=== PATIENT | female | born 1960 | race African-American/Black ===

== ENCOUNTER 2017-11-04 08:35 | Observation (INO) ==
[2017-11-04] MEDS ORDERED: ALBUTEROL/IPRATROPIUM 3 ML NEB RESP TX STA ×2 (09:00→09:47)
[2017-11-04] MEDS ORDERED: methylPREDNISolone SOD SUC 125 MG/2 ML VIAL IV STA (09:00)
[2017-11-04 09:22] LABS: Basophils # 0.1 10*3/uL (0.0-0.2); Basophils % 0.7 % (0.0-0.8); Eosinophils # 1.1 10*3/uL (0.0-0.87); Eosinophils % 12.2 % (0.00-10.9); Hematocrit 44.7 VOL% (35.7-47.0); Hemoglobin 14.8 GM/DL (12.0-16.0); Immature Granulocytes % 0.3 %; Immature Granulocytes Absolute 0.03 #; Lymphocytes # 2.6 10*3/uL (1.4-4.0); Lymphocytes % 29.9 % (21.3-54.2); Mean Corpuscular HGB Conc 33.1 GM/DL (32-36); Mean Corpuscular Hemoglobin 33 PG (27-34); Mean Platelet Volume 9.5 FL (9.6-12.0); Monocytes # 0.7 10*3/uL (0.11-0.8); Neutrophils # 4.2 10*3/uL (1.4-7.4); Neutrophils % 48.9 % (38.7-73.9); Platelet Count 332 T/CUMM (130-400); Red Blood Count 4.56 MC/CUMM (3.8-5.5); Red Cell Distribution Width 12.4 % (9.3-17.3); White Blood Count 8.6 T/CUMM (4-12)
[2017-11-04 09:50] LABS: Eosinophils 15 % (0-10); Lymphocytes 22 % (20-55); Segmented Neutrophils 56 % (50-85); Total Cells Counted 100
[2017-11-04 09:52] LABS: Anisocytosis 1+; Macrocytosis 1+
[2017-11-04 09:53] LABS: Tear Drop Cells Few
[2017-11-04 09:54] LABS: Albumin 3.6 G/DL (3.4-5.0); Bilirubin,Total 0.6 MG/DL (0.2-1.0); Calcium 9.1 MG/DL (8.5-10.1); Osmolality,Calculated 278.4 MOS/KG (273-304); Potassium 4.5 MMOL/L (3.5-5.1); Total Protein 7.1 G/DL (6.4-8.3)
[2017-11-04 09:57] LABS: Hypochromasia Slight
[2017-11-04] MEDS ORDERED: BISACODYL 5 MG TABLET PO PRN (13:47)
[2017-11-04] MEDS ORDERED: ONDANSETRON 4 MG/2 ML VIAL IV PRN (13:47)
[2017-11-04] MEDS ORDERED: ACETAMINOPHEN 325 MG TABLET PO PRN (13:47)
[2017-11-04] MEDS ORDERED: ALBUTEROL 2.5 MG/3 ML NEB RESP TX PRN (15:00)
[2017-11-04] MEDS ORDERED: methylPREDNISolone SOD SUC 40 MG/1 ML VIAL ONE ×3 (15:23)
[2017-11-04] MEDS: methylPREDNISolone SOD SUC 125 MG/2 ML VIAL IV SCH (15:53)
[2017-11-04] MEDS: ENOXAPARIN 40 MG/0.4 ML SYRINGE SUBCUT SCH (15:53)
[2017-11-04] MEDS ORDERED: NICOTINE 14 MG/24 HR PATCH TRANSDERM PRN (16:26)
[2017-11-04] MEDS: ALBUTEROL/IPRATROPIUM 3 ML NEB RESP TX SCH (18:49)
[2017-11-04] MEDS ORDERED: methylPREDNISolone SOD SUC 125 MG/2 ML VIAL IV SCH (21:30)
[2017-11-05] MEDS: methylPREDNISolone SOD SUC 125 MG/2 ML VIAL IV SCH ×2 (00:04→08:41)
[2017-11-05] MEDS: ENOXAPARIN 40 MG/0.4 ML SYRINGE SUBCUT SCH (00:06)
[2017-11-05] MEDS: ALBUTEROL/IPRATROPIUM 3 ML NEB RESP TX SCH ×2 (07:02→10:40)
[2017-11-05] MEDS ORDERED: PANTOPRAZOLE 40 MG TABLET PO SCH (09:00)
[2017-11-05 11:45] VITALS: BP 110/67
== END 2017-11-05 13:46 | disposition home or self-care (01) ==
LOC: N.EDINP 08:35 → N.ED 08:35 → N.2W 12:17 → N.2E 16:02
PROVIDERS: ADMIT Internal Medicine; ATTEND Internal Medicine

== ENCOUNTER 2017-11-11 10:24 | Inpatient (IN) ==
[2017-11-11] MEDS ORDERED: MAGNESIUM SULF RIDER 2 GM in PREMIX 1 EACH IV STA (10:45)
[2017-11-11] MEDS ORDERED: methylPREDNISolone SOD SUC 125 MG/2 ML VIAL IV STA (10:45)
[2017-11-11] MEDS ORDERED: ALBUTEROL 2.5 MG/3 ML NEB RESP TX SCH (11:00)
[2017-11-11 11:01] LABS: Basophils # 0.1 10*3/uL (0.0-0.2); Basophils % 0.5 % (0.0-0.8); Eosinophils # 1.3 10*3/uL (0.0-0.87); Eosinophils % 9.9 % (0.00-10.9); Hematocrit 44.3 VOL% (35.7-47.0); Hemoglobin 14.5 GM/DL (12.0-16.0); Immature Granulocytes % 0.7 %; Immature Granulocytes Absolute 0.09 #; Lymphocytes # 2.7 10*3/uL (1.4-4.0); Lymphocytes % 20.8 % (21.3-54.2); Mean Corpuscular HGB Conc 32.7 GM/DL (32-36); Mean Corpuscular Hemoglobin 32 PG (27-34); Mean Corpuscular Volume 98.2 FL (87-102); Mean Platelet Volume 9.5 FL (9.6-12.0); Monocytes # 0.8 10*3/uL (0.11-0.8); Monocytes % 6.3 % (1.7-12.7); Neutrophils # 8.2 10*3/uL (1.4-7.4); Neutrophils % 61.8 % (38.7-73.9); Platelet Count 288 T/CUMM (130-400); Red Blood Count 4.51 MC/CUMM (3.8-5.5); Red Cell Distribution Width 12.4 % (9.3-17.3); White Blood Count 13.2 T/CUMM (4-12)
[2017-11-11 11:20] LABS: INR 0.9; PT Patient Result 9.4 SECS; Partial Thromboplastin Time 25.7 SECS (0-40)
[2017-11-11 11:29] LABS: Albumin 3.3 G/DL (3.4-5.0); Bilirubin,Total 0.4 MG/DL (0.2-1.0); Calcium 8.5 MG/DL (8.5-10.1); Osmolality,Calculated 285.1 MOS/KG (273-304); Potassium 4.1 MMOL/L (3.5-5.1); Total Protein 6.7 G/DL (6.4-8.3)
[2017-11-11 13:19] LABS: ABG Base Excess 2.3 MMOL/L (-2.5-2.5); ABG HCO3 26.4 MMOL/L (20-26); ABG Oxygen Saturation 94.7 % (95-100); ABG PCO2 47.5 MM HG (35-48); ABG PH 7.382 (7.35-7.45); ABG PO2 75.6 MM HG (80-95); ABG TCO2 24.5 MMOL/L (23-27)
[2017-11-11] MEDS ORDERED: PROMETHAZINE 25 MG/1 ML VIAL IM PRN (13:44)
[2017-11-11] MEDS ORDERED: ONDANSETRON 4 MG/2 ML VIAL IV PRN (13:44)
[2017-11-11] MEDS ORDERED: ACETAMINOPHEN 325 MG TABLET PO PRN (13:44)
[2017-11-11] MEDS ORDERED: ALBUTEROL 2.5 MG/3 ML NEB RESP TX PRN (13:46)
[2017-11-11] MEDS ORDERED: CLORAZEPATE 7.5 MG TABLET PO STA (13:56)
[2017-11-11 15:09] LABS: Thyroid Stimulating Hormone 0.771 uIU/ml (0.358-3.74)
[2017-11-11] MEDS: NICOTINE 21 MG/24 HR PATCH TRANSDERM SCH (16:24)
[2017-11-11] MEDS: LEVOFLOXACIN INJ 500 MG in PREMIX 1 EACH IV SCH (16:24)
[2017-11-11] MEDS: PANTOPRAZOLE 40 MG TABLET PO SCH (16:24)
[2017-11-11] MEDS: MONTELUKAST 10 MG TABLET PO SCH (16:24)
[2017-11-11] MEDS: ALBUTEROL/IPRATROPIUM 3 ML NEB RESP TX SCH (19:13)
[2017-11-11] MEDS: BUDESONIDE 0.25 MG/2 ML NEB RESP TX SCH (19:14)
[2017-11-11] MEDS: ALBUTEROL 2 MG TABLET PO SCH (20:33)
[2017-11-11] MEDS: methylPREDNISolone SOD SUC 40 MG/1 ML VIAL IV SCH (20:34)
[2017-11-11] MEDS: ENOXAPARIN 40 MG/0.4 ML SYRINGE SUBCUT SCH (20:34)
[2017-11-11] MEDS: buPROPion SR 150 MG TABLET PO SCH (20:36)
[2017-11-11] MEDS ORDERED: ALUM/MAG/SIMETH/LIDO VISC 1:1 30 ML BOTTLE PO ONE (23:45)
[2017-11-11] MEDS ORDERED: MORPHINE 4 MG/1 ML VIAL IV ONE (23:46)
[2017-11-12] MEDS: ALBUTEROL/IPRATROPIUM 3 ML NEB RESP TX SCH ×4 (00:31→19:07)
[2017-11-12 02:54] LABS: Basophils % 0.2 % (0.0-0.8); Eosinophils % 0.1 % (0.00-10.9); Hematocrit 40.3 VOL% (35.7-47.0); Hemoglobin 12.7 GM/DL (12.0-16.0); Immature Granulocytes % 2.4 %; Immature Granulocytes Absolute 0.45 #; Lymphocytes # 1.5 10*3/uL (1.4-4.0); Lymphocytes % 7.6 % (21.3-54.2); Mean Corpuscular HGB Conc 31.5 GM/DL (32-36); Mean Corpuscular Hemoglobin 32 PG (27-34); Mean Corpuscular Volume 100.5 FL (87-102); Mean Platelet Volume 10.6 FL (9.6-12.0); Monocytes # 0.3 10*3/uL (0.11-0.8); Monocytes % 1.5 % (1.7-12.7); Neutrophils # 16.8 10*3/uL (1.4-7.4); Neutrophils % 88.2 % (38.7-73.9); Platelet Count 286 T/CUMM (130-400); Red Blood Count 4.01 MC/CUMM (3.8-5.5); Red Cell Distribution Width 12.4 % (9.3-17.3); White Blood Count 19.1 T/CUMM (4-12)
[2017-11-12 03:32] LABS: Albumin 3.1 G/DL (3.4-5.0); Bilirubin,Total 0.6 MG/DL (0.2-1.0); Calcium 8.4 MG/DL (8.5-10.1); Osmolality,Calculated 280.7 MOS/KG (273-304); Risk Ratio 3.74; Total Protein 6.7 G/DL (6.4-8.3); VLDL CHOLESTEROL 25.6 MG/DL
[2017-11-12] MEDS: methylPREDNISolone SOD SUC 40 MG/1 ML VIAL IV SCH ×3 (04:14→21:08)
[2017-11-12] MEDS: BUDESONIDE 0.25 MG/2 ML NEB RESP TX SCH ×2 (07:08→19:07)
[2017-11-12] MEDS: SODIUM CHLORIDE 0.9% 1,000 ML IV SCH ×2 (07:37→21:08)
[2017-11-12 08:14] LABS: Folate 6.6 NG/ML (5.4-24.0)
[2017-11-12] MEDS: NICOTINE 21 MG/24 HR PATCH TRANSDERM SCH (08:49)
[2017-11-12] MEDS: ALBUTEROL 2 MG TABLET PO SCH ×2 (08:49→21:07)
[2017-11-12] MEDS: PANTOPRAZOLE 40 MG TABLET PO SCH (08:49)
[2017-11-12] MEDS: buPROPion SR 150 MG TABLET PO SCH ×2 (08:50→21:06)
[2017-11-12] MEDS: MONTELUKAST 10 MG TABLET PO SCH ×2 (08:50→21:07)
[2017-11-12] MEDS: FOLIC ACID 1 MG TABLET PO SCH ×2 (14:09→21:07)
[2017-11-12] MEDS: CYANOCOBALAMIN 1000 MCG/1 ML VIAL IM SCH (14:09)
[2017-11-12] MEDS: LEVOFLOXACIN INJ 500 MG in PREMIX 1 EACH IV SCH (14:10)
[2017-11-12] MEDS: ROSUVASTATIN 10 MG TABLET PO SCH (21:07)
[2017-11-12] MEDS: ENOXAPARIN 40 MG/0.4 ML SYRINGE SUBCUT SCH (21:07)
[2017-11-13] MEDS: ALBUTEROL/IPRATROPIUM 3 ML NEB RESP TX SCH ×4 (00:23→19:50)
[2017-11-13] MEDS ORDERED: LACTULOSE 20 GM/30 ML UDCUP PO ONE (00:38)
[2017-11-13] MEDS: SODIUM CHLORIDE 0.9% 1,000 ML IV SCH ×3 (04:20→19:03)
[2017-11-13] MEDS: methylPREDNISolone SOD SUC 40 MG/1 ML VIAL IV SCH ×2 (04:20→12:40)
[2017-11-13 06:50] LABS: Basophils % 0.2 % (0.0-0.8); Hemoglobin 11.1 GM/DL (12.0-16.0); Immature Granulocytes % 5.6 %; Immature Granulocytes Absolute 1.37 #; Lymphocytes # 1.5 10*3/uL (1.4-4.0); Lymphocytes % 5.9 % (21.3-54.2); Mean Corpuscular HGB Conc 31.7 GM/DL (32-36); Mean Corpuscular Hemoglobin 32 PG (27-34); Mean Corpuscular Volume 101.4 FL (87-102); Mean Platelet Volume 10.1 FL (9.6-12.0); Monocytes # 1.1 10*3/uL (0.11-0.8); Monocytes % 4.6 % (1.7-12.7); Neutrophils # 20.6 10*3/uL (1.4-7.4); Neutrophils % 83.7 % (38.7-73.9); Platelet Count 238 T/CUMM (130-400); Red Blood Count 3.45 MC/CUMM (3.8-5.5); Red Cell Distribution Width 12.8 % (9.3-17.3); White Blood Count 24.6 T/CUMM (4-12)
[2017-11-13 07:12] LABS: Hypochromasia 1+; Lymphocytes 3 % (20-55); Platelet Estimate Adequate; Segmented Neutrophils 93 % (50-85); Total Cells Counted 100
[2017-11-13 07:24] LABS: Alanine Aminotransferase 30 U/L (13-56); Albumin 2.8 G/DL (3.4-5.0); Alkaline Phosphatase 54 U/L (45-117); Aspartate Amino Transferase 20 U/L (0-37); Bilirubin,Total < 0.39 MG/DL (0.2-1.0); Blood Urea Nitrogen 18 MG/DL (7-18); Calcium 8.3 MG/DL (8.5-10.1); Glucose 227 MG/DL (74-106); Osmolality,Calculated 289.3 MOS/KG (273-304); Potassium 5.2 MMOL/L (3.5-5.1); Sodium 141 MMOL/L (136-145); Total Protein 5.6 G/DL (6.4-8.3)
[2017-11-13] MEDS ORDERED: SODIUM POLYSTYRENE SULFATE 15 GM/60 ML BOTTLE PO STA (07:27)
[2017-11-13] MEDS: BUDESONIDE 0.25 MG/2 ML NEB RESP TX SCH ×2 (07:35→19:50)
[2017-11-13] MEDS: PANTOPRAZOLE 40 MG TABLET PO SCH (09:36)
[2017-11-13] MEDS: FOLIC ACID 1 MG TABLET PO SCH ×2 (09:36→21:41)
[2017-11-13] MEDS: MONTELUKAST 10 MG TABLET PO SCH ×2 (09:36→21:41)
[2017-11-13] MEDS: ALBUTEROL 2 MG TABLET PO SCH ×2 (09:36→21:41)
[2017-11-13] MEDS: NICOTINE 21 MG/24 HR PATCH TRANSDERM SCH (09:37)
[2017-11-13] MEDS: CYANOCOBALAMIN 1000 MCG/1 ML VIAL IM SCH (09:37)
[2017-11-13] MEDS: buPROPion SR 150 MG TABLET PO SCH ×2 (09:52→21:41)
[2017-11-13] MEDS ORDERED: ALBUTEROL/IPRATROPIUM 3 ML NEB RESP TX PRN (10:33)
[2017-11-13] MEDS: DORNASE ALFA 2.5 MG/2.5 ML VIAL RESP TX SCH ×2 (10:39→19:50)
[2017-11-13] MEDS: LEVOFLOXACIN INJ 500 MG in PREMIX 1 EACH IV SCH (14:09)
[2017-11-13] MEDS: BENZONATATE 100 MG CAPSULE PO SCH ×2 (14:10→21:41)
[2017-11-13] MEDS: ROSUVASTATIN 10 MG TABLET PO SCH (21:41)
[2017-11-13] MEDS: ENOXAPARIN 40 MG/0.4 ML SYRINGE SUBCUT SCH (21:41)
[2017-11-14] MEDS: methylPREDNISolone SOD SUC 40 MG/1 ML VIAL IV SCH ×2 (00:19→12:23)
[2017-11-14] MEDS: ALBUTEROL/IPRATROPIUM 3 ML NEB RESP TX SCH ×2 (00:26→07:28)
[2017-11-14] MEDS: SODIUM CHLORIDE 0.9% 1,000 ML IV SCH (04:01)
[2017-11-14 05:40] LABS: Basophils # 0.1 10*3/uL (0.0-0.2); Basophils % 0.2 % (0.0-0.8); Hematocrit 36.5 VOL% (35.7-47.0); Hemoglobin 11.6 GM/DL (12.0-16.0); Immature Granulocytes % 6.8 %; Immature Granulocytes Absolute 1.89 #; Lymphocytes # 1.9 10*3/uL (1.4-4.0); Lymphocytes % 6.8 % (21.3-54.2); Mean Corpuscular HGB Conc 31.8 GM/DL (32-36); Mean Corpuscular Hemoglobin 32 PG (27-34); Mean Platelet Volume 9.9 FL (9.6-12.0); Monocytes # 1.2 10*3/uL (0.11-0.8); Monocytes % 4.3 % (1.7-12.7); Neutrophils # 22.7 10*3/uL (1.4-7.4); Neutrophils % 81.9 % (38.7-73.9); Platelet Count 242 T/CUMM (130-400); Red Blood Count 3.58 MC/CUMM (3.8-5.5); White Blood Count 27.7 T/CUMM (4-12)
[2017-11-14 06:13] LABS: Band Neutrophils 2 % (0-10); Hypochromasia 1+; Lymphocytes 3 % (20-55); Macrocytosis Slight; Myelocytes 1 %; Segmented Neutrophils 89 % (50-85); Total Cells Counted 100
[2017-11-14 06:14] LABS: Albumin 2.9 G/DL (3.4-5.0); Bilirubin,Total 0.9 MG/DL (0.2-1.0); Calcium 8.1 MG/DL (8.5-10.1); Osmolality,Calculated 287.3 MOS/KG (273-304); Platelet Estimate Normal; Potassium 4.5 MMOL/L (3.5-5.1); Total Protein 6.2 G/DL (6.4-8.3)
[2017-11-14] MEDS: BUDESONIDE 0.25 MG/2 ML NEB RESP TX SCH (07:28)
[2017-11-14] MEDS: DORNASE ALFA 2.5 MG/2.5 ML VIAL RESP TX SCH (07:42)
[2017-11-14] MEDS: PANTOPRAZOLE 40 MG TABLET PO SCH (08:45)
[2017-11-14] MEDS: FOLIC ACID 1 MG TABLET PO SCH (08:45)
[2017-11-14] MEDS: buPROPion SR 150 MG TABLET PO SCH (08:45)
[2017-11-14] MEDS: ALBUTEROL 2 MG TABLET PO SCH (08:45)
[2017-11-14] MEDS: MONTELUKAST 10 MG TABLET PO SCH (08:45)
[2017-11-14] MEDS: NICOTINE 21 MG/24 HR PATCH TRANSDERM SCH (08:45)
[2017-11-14] MEDS ORDERED: FLUTICASONE/SALMETEROL 500-50 DISKUS 14 DOSE INH SCH (09:00)
[2017-11-14 12:03] VITALS: BP 118/64
[2017-11-14] MEDS: BENZONATATE 100 MG CAPSULE PO SCH (12:20)
== END 2017-11-14 14:14 | disposition home or self-care (01) | DRG 202 ==
LOC: N.EDINP 10:24 → N.ED 10:24 → N.EDINP 14:38 → N.5E 14:48
PROVIDERS: ADMIT Internal Medicine; ATTEND Internal Medicine

== ENCOUNTER 2018-03-17 18:22 | Observation (INO) ==
[2018-03-17] MEDS ORDERED: ALBUTEROL/IPRATROPIUM 3 ML NEB RESP TX STA ×2 (18:53→19:57)
[2018-03-17] MEDS ORDERED: methylPREDNISolone SOD SUC 125 MG/2 ML VIAL IV STA (18:53)
[2018-03-17 20:10] LABS: Basophils # 0.1 10*3/uL (0.0-0.2); Basophils % 0.6 % (0.0-0.8); Eosinophils # 0.2 10*3/uL (0.0-0.87); Eosinophils % 1.8 % (0.00-10.9); Hematocrit 43.4 VOL% (35.7-47.0); Hemoglobin 13.8 GM/DL (12.0-16.0); Immature Granulocytes % 0.6 %; Immature Granulocytes Absolute 0.06 #; Lymphocytes # 2.4 10*3/uL (1.4-4.0); Lymphocytes % 21.7 % (21.3-54.2); Mean Corpuscular HGB Conc 31.8 GM/DL (32-36); Mean Corpuscular Hemoglobin 31 PG (27-34); Mean Corpuscular Volume 98.6 FL (87-102); Monocytes # 0.8 10*3/uL (0.11-0.8); Monocytes % 7.7 % (1.7-12.7); Neutrophils # 7.3 10*3/uL (1.4-7.4); Neutrophils % 67.6 % (38.7-73.9); Platelet Count 293 T/CUMM (130-400); Red Cell Distribution Width 12.7 % (9.3-17.3); White Blood Count 10.8 T/CUMM (4-12)
[2018-03-17 20:30] LABS: Albumin 3.3 G/DL (3.4-5.0); Bilirubin,Total 0.4 MG/DL (0.2-1.0); Calcium 8.9 MG/DL (8.5-10.1); Osmolality,Calculated 280.3 MOS/KG (273-304); Potassium 4.1 MMOL/L (3.5-5.1); Total Protein 6.4 G/DL (6.4-8.3)
[2018-03-17] MEDS ORDERED: ZALEPLON 5 MG CAPSULE PO PRN (21:09)
[2018-03-17] MEDS ORDERED: ACETAMINOPHEN 325 MG TABLET PO PRN (21:09)
[2018-03-17] MEDS ORDERED: ALBUTEROL/IPRATROPIUM 3 ML NEB RESP TX PRN (21:09)
[2018-03-17] MEDS ORDERED: guaiFENesin/DM ER 600-30 MG TABLET PO PRN (21:09)
[2018-03-18] MEDS: ALBUTEROL/IPRATROPIUM 3 ML NEB RESP TX SCH ×4 (00:15→20:09)
[2018-03-18] MEDS: LEVOFLOXACIN INJ 750 MG in PREMIX 1 EACH IV SCH ×2 (01:53→23:18)
[2018-03-18] MEDS: methylPREDNISolone SOD SUC 40 MG/1 ML VIAL IV SCH ×4 (01:54→20:54)
[2018-03-18 06:14] LABS: Basophils % 0.2 % (0.0-0.8); Eosinophils % 0.1 % (0.00-10.9); Hematocrit 42.5 VOL% (35.7-47.0); Hemoglobin 13.1 GM/DL (12.0-16.0); Immature Granulocytes % 0.8 %; Immature Granulocytes Absolute 0.09 #; Lymphocytes # 0.9 10*3/uL (1.4-4.0); Lymphocytes % 7.9 % (21.3-54.2); Mean Corpuscular HGB Conc 30.8 GM/DL (32-36); Mean Corpuscular Hemoglobin 31 PG (27-34); Mean Corpuscular Volume 99.5 FL (87-102); Mean Platelet Volume 10.2 FL (9.6-12.0); Monocytes # 0.1 10*3/uL (0.11-0.8); Neutrophils # 10.3 10*3/uL (1.4-7.4); Platelet Count 294 T/CUMM (130-400); Red Blood Count 4.27 MC/CUMM (3.8-5.5); Red Cell Distribution Width 12.9 % (9.3-17.3); White Blood Count 11.4 T/CUMM (4-12)
[2018-03-18 06:24] LABS: Calcium 8.9 MG/DL (8.5-10.1); Osmolality,Calculated 281.5 MOS/KG (273-304); Potassium 4.1 MMOL/L (3.5-5.1)
[2018-03-18] MEDS: DOCUSATE SODIUM 100 MG CAPSULE PO SCH ×2 (09:11→20:57)
[2018-03-18] MEDS: PANTOPRAZOLE 40 MG TABLET PO SCH (09:11)
[2018-03-18] MEDS: ENOXAPARIN 40 MG/0.4 ML SYRINGE SUBCUT SCH (09:11)
[2018-03-19] MEDS: ALBUTEROL/IPRATROPIUM 3 ML NEB RESP TX SCH ×3 (00:06→12:06)
[2018-03-19] MEDS: methylPREDNISolone SOD SUC 40 MG/1 ML VIAL IV SCH ×2 (02:01→08:56)
[2018-03-19] MEDS: PANTOPRAZOLE 40 MG TABLET PO SCH (08:56)
[2018-03-19] MEDS: DOCUSATE SODIUM 100 MG CAPSULE PO SCH (08:56)
[2018-03-19] MEDS: ENOXAPARIN 40 MG/0.4 ML SYRINGE SUBCUT SCH (08:56)
[2018-03-19 11:21] VITALS: BP 113/69
== END 2018-03-19 13:20 ==
LOC: EDUNIT# → EDBD → N.ED 18:22 → INTOOBSV 21:09 → N.EDINP 21:09 → N.3E 23:09
PROVIDERS: ADMIT Internal Medicine; ATTEND Internal Medicine

== ENCOUNTER 2018-07-05 16:41 | Observation (INO) ==
[2018-07-05] MEDS ORDERED: ALBUTEROL/IPRATROPIUM 3 ML NEB RESP TX STA ×2 (17:19→20:50)
[2018-07-05] MEDS ORDERED: methylPREDNISolone SOD SUC 125 MG/2 ML VIAL IV STA (17:19)
[2018-07-05] MEDS ORDERED: LEVOFLOXACIN INJ 500 MG in PREMIX 1 EACH IV STA (17:19)
[2018-07-05] MEDS ORDERED: ALBUTEROL 2.5 MG/3 ML NEB RESP TX STA ×2 (17:59→21:14)
[2018-07-05 19:02] LABS: Basophils # 0.1 10*3/uL (0.0-0.2); Basophils % 0.5 % (0.0-0.8); Eosinophils # 0.6 10*3/uL (0.0-0.87); Eosinophils % 6.6 % (0.00-10.9); Hemoglobin 14.2 GM/DL (12.0-16.0); Immature Granulocytes % 0.5 %; Immature Granulocytes Absolute 0.05 #; Lymphocytes # 2.9 10*3/uL (1.4-4.0); Lymphocytes % 30.4 % (21.3-54.2); Mean Corpuscular HGB Conc 31.6 GM/DL (32-36); Mean Corpuscular Volume 99.3 FL (87-102); Mean Platelet Volume 9.6 FL (9.6-12.0); Monocytes % 8.9 % (1.7-12.7); Neutrophils % 53.1 % (38.7-73.9); Platelet Count 269 T/CUMM (130-400); Red Blood Count 4.53 MC/CUMM (3.8-5.5); Red Cell Distribution Width 12.8 % (9.3-17.3); White Blood Count 9.6 T/CUMM (4-12)
[2018-07-05 19:12] LABS: Albumin 3.1 G/DL (3.4-5.0); Bilirubin,Total 0.4 MG/DL (0.2-1.0); Calcium 8.9 MG/DL (8.5-10.1); Osmolality,Calculated 282.1 MOS/KG (273-304); Total Protein 6.2 G/DL (6.4-8.3)
[2018-07-05] MEDS ORDERED: ACETAMINOPHEN 325 MG TABLET PO PRN (22:54)
[2018-07-05] MEDS ORDERED: ALBUTEROL 2.5 MG/3 ML NEB RESP TX PRN (22:54)
[2018-07-05] MEDS ORDERED: diphenhydrAMINE CAP 25 MG CAPSULE PO PRN (22:54)
[2018-07-05] MEDS ORDERED: NICOTINE 21 MG/24 HR PATCH TRANSDERM PRN (22:54)
[2018-07-05] MEDS ORDERED: ONDANSETRON 4 MG/2 ML VIAL IV PRN (22:54)
[2018-07-05] MEDS ORDERED: BISACODYL 5 MG TABLET PO PRN (22:54)
[2018-07-06] MEDS: ALBUTEROL/IPRATROPIUM 3 ML NEB RESP TX SCH ×7 (00:02→22:56)
[2018-07-06] MEDS: AMOXICILLIN/CLAV 500 MG TABLET PO SCH ×3 (00:28→22:49)
[2018-07-06] MEDS ORDERED: ALBUTEROL/IPRATROPIUM 3 ML NEB RESP TX PRN (01:31)
[2018-07-06] MEDS ORDERED: FLUTICASONE/SALMETEROL 500-50 DISKUS 14 DOSE INH SCH (01:31)
[2018-07-06] MEDS: methylPREDNISolone SOD SUC 40 MG/1 ML VIAL IV SCH ×3 (01:58→18:20)
[2018-07-06 05:06] LABS: Basophils % 0.2 % (0.0-0.8); Hematocrit 45.3 VOL% (35.7-47.0); Hemoglobin 14.2 GM/DL (12.0-16.0); Immature Granulocytes % 0.6 %; Immature Granulocytes Absolute 0.07 #; Lymphocytes # 0.7 10*3/uL (1.4-4.0); Lymphocytes % 6.4 % (21.3-54.2); Mean Corpuscular HGB Conc 31.3 GM/DL (32-36); Mean Corpuscular Volume 99.8 FL (87-102); Monocytes % 0.9 % (1.7-12.7); Neutrophils % 91.9 % (38.7-73.9); Platelet Count 290 T/CUMM (130-400); Red Blood Count 4.54 MC/CUMM (3.8-5.5); Red Cell Distribution Width 12.8 % (9.3-17.3)
[2018-07-06 05:45] LABS: Anisocytosis 1+; Lymphocytes 4 % (20-55); Segmented Neutrophils 96 % (50-85); Total Cells Counted 100
[2018-07-06 05:46] LABS: Platelet Estimate Adequate
[2018-07-06] MEDS: PANTOPRAZOLE 40 MG TABLET PO SCH (08:22)
[2018-07-06] MEDS: BUDESONIDE/FORMOTEROL 160-4.5 INHALER 6 GM INH SCH ×2 (08:26→22:50)
[2018-07-06] MEDS: guaiFENesin/DM ER 600-30 MG TABLET PO PRN (22:49)
[2018-07-07] MEDS: ALBUTEROL/IPRATROPIUM 3 ML NEB RESP TX SCH ×5 (02:44→19:42)
[2018-07-07] MEDS: methylPREDNISolone SOD SUC 40 MG/1 ML VIAL IV SCH ×3 (02:53→17:06)
[2018-07-07] MEDS: PANTOPRAZOLE 40 MG TABLET PO SCH (09:23)
[2018-07-07] MEDS: AMOXICILLIN/CLAV 500 MG TABLET PO SCH ×2 (09:23→21:39)
[2018-07-07] MEDS: BUDESONIDE/FORMOTEROL 160-4.5 INHALER 6 GM INH SCH ×2 (09:24→21:38)
[2018-07-07] MEDS: POLYETHYLENE GLYCOL POWDER 17 GM PACK PO SCH (13:19)
[2018-07-08] MEDS: methylPREDNISolone SOD SUC 40 MG/1 ML VIAL IV SCH ×2 (01:11→09:00)
[2018-07-08] MEDS: ALBUTEROL/IPRATROPIUM 3 ML NEB RESP TX SCH ×5 (03:17→15:13)
[2018-07-08 08:04] LABS: Basophils # 0.1 10*3/uL (0.0-0.2); Basophils % 0.2 % (0.0-0.8); Hematocrit 40.9 VOL% (35.7-47.0); Hemoglobin 13.1 GM/DL (12.0-16.0); Immature Granulocytes Absolute 0.68 #; Lymphocytes # 1.2 10*3/uL (1.4-4.0); Lymphocytes % 5.5 % (21.3-54.2); Mean Corpuscular Volume 99.3 FL (87-102); Mean Platelet Volume 10.1 FL (9.6-12.0); Neutrophils % 87.3 % (38.7-73.9); Platelet Count 278 T/CUMM (130-400); Red Blood Count 4.12 MC/CUMM (3.8-5.5); Red Cell Distribution Width 13.1 % (9.3-17.3); White Blood Count 22.5 T/CUMM (4-12)
[2018-07-08 08:25] LABS: Albumin 3.2 G/DL (3.4-5.0); Bilirubin,Total 0.4 MG/DL (0.2-1.0); Osmolality,Calculated 285.7 MOS/KG (273-304); Total Protein 6.3 G/DL (6.4-8.3)
[2018-07-08 08:40] LABS: Hypochromasia 1+; Lymphocytes 3 % (20-55); Platelet Estimate Adequate; Segmented Neutrophils 90 % (50-85); Total Cells Counted 100
[2018-07-08] MEDS: POLYETHYLENE GLYCOL POWDER 17 GM PACK PO SCH (09:00)
[2018-07-08] MEDS: guaiFENesin/DM ER 600-30 MG TABLET PO PRN (09:01)
[2018-07-08] MEDS: BUDESONIDE/FORMOTEROL 160-4.5 INHALER 6 GM INH SCH (09:01)
[2018-07-08] MEDS: AMOXICILLIN/CLAV 500 MG TABLET PO SCH (09:01)
[2018-07-08] MEDS: PANTOPRAZOLE 40 MG TABLET PO SCH (09:01)
[2018-07-08 13:05] VITALS: BP 128/77
== END 2018-07-08 17:00 | disposition home or self-care (01) ==
LOC: EDUNIT# → N.EDINP 16:41 → N.ED 16:41 → N.TELES 23:50 → N.5E 07-06 15:52

== ENCOUNTER 2019-04-11 14:18 | Inpatient (IN) ==
[2019-04-11] MEDS ORDERED: ALBUTEROL NEB SOLN 5 MG/ML 20 ML/BOTTLE CONT NEB STA (15:12)
[2019-04-11] MEDS ORDERED: ALBUTEROL 2.5 MG/3 ML NEB RESP TX ONE (15:14)
[2019-04-11] MEDS ORDERED: methylPREDNISolone SOD SUC 125 MG/2 ML VIAL ONE (15:20)
[2019-04-11] MEDS ORDERED: methylPREDNISolone SOD SUC 125 MG/2 ML VIAL IV STA (15:25)
[2019-04-11 15:34] LABS: Basophils # 0.1 10*3/uL (0.0-0.2); Basophils % 0.5 % (0.0-0.8); Eosinophils # 0.4 10*3/uL (0.0-0.87); Eosinophils % 2.6 % (0.00-10.9); Hematocrit 44.2 VOL% (35.7-47.0); Immature Granulocytes % 0.6 %; Immature Granulocytes Absolute 0.09 #; Lymphocytes # 2.1 10*3/uL (1.4-4.0); Lymphocytes % 14.3 % (21.3-54.2); Mean Corpuscular HGB Conc 31.7 GM/DL (32-36); Mean Corpuscular Volume 99.8 FL (87-102); Mean Platelet Volume 9.7 FL (9.6-12.0); Monocytes % 8.1 % (1.7-12.7); Neutrophils % 73.9 % (38.7-73.9); Platelet Count 317 T/CUMM (130-400); Red Blood Count 4.43 MC/CUMM (3.8-5.5); Red Cell Distribution Width 12.7 % (9.3-17.3); White Blood Count 14.4 T/CUMM (4-12)
[2019-04-11] MEDS ORDERED: FUROSEMIDE 40 MG/4 ML VIAL IV STA (15:38)
[2019-04-11 15:42] LABS: PT Patient Result 10.4 SECS (9.6-12.2); Partial Thromboplastin Time 28.5 SECS (20.8-36.0)
[2019-04-11 15:43] LABS: Albumin 3.5 G/DL (3.4-5.0); Bilirubin,Total 0.4 MG/DL (0.2-1.0); Calcium 9.5 MG/DL (8.5-10.1); Osmolality,Calculated 269.2 MOS/KG (273-304); Total Protein 7.7 G/DL (6.4-8.3)
[2019-04-11 16:00] LABS: Platelet Estimate Normal
[2019-04-11 16:01] LABS: Macrocytosis Slight
[2019-04-11 16:02] LABS: Ovalocytes Few
[2019-04-11 16:06] LABS: Lymphocytes 14 % (20-55)
[2019-04-11 16:07] LABS: Segmented Neutrophils 78 % (50-85); Total Cells Counted 100
[2019-04-11 16:37] LABS: Barbiturates Screen,Urine Negative (Negative); Benzodiazepines Screen,Urine Negative (Negative); Cannabinoid Screen,Urine Negative (Negative); Opiate Screen,Urine Negative (Negative); Phencyclidine Screen,Urine Negative (Negative)
[2019-04-11 16:38] LABS: Apearance,Urine CLEAR (Clear); Bacteria,Urine Moderate /HPF (Few); Bilirubin,Urine Negative (Negative); Blood, Urine Negative (Negative); Glucose,Urine (UA) 50 mg/dL (Negative); Ketones,Urine Negative (Negative); Mucus,Urine Occasional /LPF (Occasional); Nitrite,Urine Negative (Negative); Protein,Urine Negative; RBC,Urine <1 /HPF (0-4); Squamous Epithelial Cell,Urine Occasional /HPF (0-10); Urine Color Yellow (Yellow); Urine Specific Gravity 1.014 (1.001-1.035); Urine Urobilinogen < 2.0 EU/DL (0.2-1.0); WBC,Urine 1 /HPF (0-6)
[2019-04-11 17:00] LABS: ABG HCO3 27.8 MMOL/L (20-26); ABG Oxygen Saturation 92.8 % (95-100); ABG PCO2 43.1 MM HG (35-48); ABG PH 7.433 (7.35-7.45); ABG PO2 63.7 MM HG (80-95); ABG TCO2 24.5 MMOL/L (23-27)
[2019-04-11] MEDS: MEROPENEM 500 MG in SODIUM CHLORIDE 0.9% 100 ML IV SCH (18:25)
[2019-04-11] MEDS ORDERED: LACTULOSE 20 GM/30 ML UDCUP PO PRN (19:22)
[2019-04-11] MEDS ORDERED: ALUMINUM/MAGNES/SIMETH MAX STR 30 ML UDCUP PO PRN (19:22)
[2019-04-11] MEDS ORDERED: ONDANSETRON 4 MG/2 ML VIAL IV PRN (19:22)
[2019-04-11] MEDS ORDERED: GLUCAGON 1 MG VIAL IM PRN (19:22)
[2019-04-11] MEDS ORDERED: DEXTROSE 10% 250 ML BAG IV PRN (19:22)
[2019-04-11] MEDS ORDERED: ACETAMINOPHEN 325 MG TABLET PO PRN (19:22)
[2019-04-11] MEDS: ALBUTEROL/IPRATROPIUM 3 ML NEB RESP TX SCH (20:03)
[2019-04-11] MEDS: OSELTAMIVIR 75 MG CAPSULE PO SCH (22:10)
[2019-04-11] MEDS: INSULIN LISPRO 100 UNIT/ML SUBCUT SCH (22:12)
[2019-04-11] MEDS: BUDESONIDE/FORMOTEROL 160-4.5 INHALER 6 GM INH SCH (22:12)
[2019-04-11] MEDS: ENOXAPARIN 40 MG/0.4 ML SYRINGE SUBCUT SCH (22:13)
[2019-04-11] MEDS: LEVOFLOXACIN INJ 500 MG in PREMIX 1 EACH IV SCH (22:14)
[2019-04-11] MEDS: SODIUM CHLORIDE 0.9% 1,000 ML IV SCH (22:14)
[2019-04-12] MEDS: MEROPENEM 500 MG in SODIUM CHLORIDE 0.9% 100 ML IV SCH ×5 (00:31→23:15)
[2019-04-12] MEDS: ALBUTEROL/IPRATROPIUM 3 ML NEB RESP TX SCH ×6 (00:43→19:26)
[2019-04-12] MEDS: methylPREDNISolone SOD SUC 125 MG/2 ML VIAL IV SCH ×3 (02:51→21:15)
[2019-04-12 03:02] LABS: ABG HCO3 27.9 MMOL/L (20-26); ABG Oxygen Saturation 96.2 % (95-100); ABG PH 7.401 (7.35-7.45); ABG PO2 83.2 MM HG (80-95); ABG TCO2 25.7 MMOL/L (23-27); Allen Test Positive; Pt O2 Delivery Device Other
[2019-04-12 05:32] LABS: Basophils % 0.1 % (0.0-0.8); Hematocrit 43.2 VOL% (35.7-47.0); Immature Granulocytes % 0.7 %; Lymphocytes # 1.1 10*3/uL (1.4-4.0); Lymphocytes % 7.9 % (21.3-54.2); Mean Corpuscular HGB Conc 32.4 GM/DL (32-36); Mean Corpuscular Volume 97.5 FL (87-102); Mean Platelet Volume 9.9 FL (9.6-12.0); Monocytes % 1.1 % (1.7-12.7); Neutrophils % 90.2 % (38.7-73.9); Platelet Count 321 T/CUMM (130-400); Red Blood Count 4.43 MC/CUMM (3.8-5.5); Red Cell Distribution Width 12.7 % (9.3-17.3); White Blood Count 13.9 T/CUMM (4-12)
[2019-04-12 06:04] LABS: Hypochromasia Slight; Lymphocytes 7 % (20-55); Platelet Estimate Adequate; Segmented Neutrophils 92 % (50-85); Total Cells Counted 100
[2019-04-12 06:05] LABS: Macrocytosis Slight
[2019-04-12] MEDS ORDERED: MONTELUKAST 10 MG TABLET PO SCH (09:00)
[2019-04-12] MEDS: BUDESONIDE/FORMOTEROL 160-4.5 INHALER 6 GM INH SCH ×2 (09:31→21:15)
[2019-04-12] MEDS: INSULIN LISPRO 100 UNIT/ML SUBCUT SCH ×4 (09:31→21:01)
[2019-04-12] MEDS: PANTOPRAZOLE 40 MG TABLET PO SCH (09:32)
[2019-04-12] MEDS: OSELTAMIVIR 75 MG CAPSULE PO SCH ×2 (09:32→21:14)
[2019-04-12] MEDS: SODIUM CHLORIDE 0.9% 1,000 ML IV SCH (12:38)
[2019-04-12] MEDS: ALBUTEROL 2 MG TABLET PO SCH ×2 (16:35→21:14)
[2019-04-12] MEDS: LEVOFLOXACIN INJ 500 MG in PREMIX 1 EACH IV SCH (18:39)
[2019-04-12] MEDS: MONTELUKAST 10 MG TABLET PO SCH (21:14)
[2019-04-12] MEDS: ENOXAPARIN 40 MG/0.4 ML SYRINGE SUBCUT SCH (21:15)
[2019-04-13] MEDS: ALBUTEROL/IPRATROPIUM 3 ML NEB RESP TX SCH ×6 (00:04→20:34)
[2019-04-13] MEDS: SODIUM CHLORIDE 0.9% 1,000 ML IV SCH ×3 (01:16→21:33)
[2019-04-13 04:08] LABS: Basophils % 0.2 % (0.0-0.8); Immature Granulocytes % 0.8 %; Immature Granulocytes Absolute 0.13 #; Lymphocytes # 1.2 10*3/uL (1.4-4.0); Lymphocytes % 7.1 % (21.3-54.2); Mean Corpuscular HGB Conc 31.6 GM/DL (32-36); Mean Corpuscular Volume 99.7 FL (87-102); Mean Platelet Volume 10.1 FL (9.6-12.0); Monocytes % 3.7 % (1.7-12.7); Neutrophils % 88.2 % (38.7-73.9); Platelet Count 280 T/CUMM (130-400); Red Blood Count 3.81 MC/CUMM (3.8-5.5); Red Cell Distribution Width 12.9 % (9.3-17.3); White Blood Count 16.9 T/CUMM (4-12)
[2019-04-13 04:32] LABS: Hypochromasia 1+; Macrocytosis Slight; Platelet Estimate Adequate
[2019-04-13 04:45] LABS: Calcium 8.7 MG/DL (8.5-10.1); Osmolality,Calculated 285.7 MOS/KG (273-304)
[2019-04-13] MEDS: MEROPENEM 500 MG in SODIUM CHLORIDE 0.9% 100 ML IV SCH ×4 (05:58→23:53)
[2019-04-13] MEDS: ALBUTEROL 2 MG TABLET PO SCH ×3 (06:01→21:23)
[2019-04-13] MEDS: INSULIN LISPRO 100 UNIT/ML SUBCUT SCH ×4 (08:35→21:00)
[2019-04-13] MEDS: MONTELUKAST 10 MG TABLET PO SCH ×2 (09:20→21:23)
[2019-04-13] MEDS: methylPREDNISolone SOD SUC 125 MG/2 ML VIAL IV SCH ×2 (09:20→21:24)
[2019-04-13] MEDS: PANTOPRAZOLE 40 MG TABLET PO SCH (09:20)
[2019-04-13] MEDS: BUDESONIDE/FORMOTEROL 160-4.5 INHALER 6 GM INH SCH ×2 (09:20→21:25)
[2019-04-13] MEDS: OSELTAMIVIR 75 MG CAPSULE PO SCH ×2 (09:20→21:23)
[2019-04-13] MEDS: DORNASE ALFA 2.5 MG/2.5 ML VIAL RESP TX SCH ×2 (10:11→20:34)
[2019-04-13] MEDS: LEVOFLOXACIN INJ 500 MG in PREMIX 1 EACH IV SCH (17:00)
[2019-04-13] MEDS: ENOXAPARIN 40 MG/0.4 ML SYRINGE SUBCUT SCH (21:24)
[2019-04-14] MEDS: ALBUTEROL/IPRATROPIUM 3 ML NEB RESP TX SCH ×4 (02:23→10:35)
[2019-04-14] MEDS: MEROPENEM 500 MG in SODIUM CHLORIDE 0.9% 100 ML IV SCH ×2 (05:53→13:43)
[2019-04-14] MEDS: ALBUTEROL 2 MG TABLET PO SCH (05:53)
[2019-04-14] MEDS: SODIUM CHLORIDE 0.9% 1,000 ML IV SCH (06:19)
[2019-04-14] MEDS: DORNASE ALFA 2.5 MG/2.5 ML VIAL RESP TX SCH (07:15)
[2019-04-14] MEDS ORDERED: ALBUTEROL 2 MG TABLET PO SCH (10:00)
[2019-04-14] MEDS: OSELTAMIVIR 75 MG CAPSULE PO SCH (10:01)
[2019-04-14] MEDS: methylPREDNISolone SOD SUC 125 MG/2 ML VIAL IV SCH (10:02)
[2019-04-14] MEDS: MONTELUKAST 10 MG TABLET PO SCH (10:02)
[2019-04-14] MEDS: INSULIN LISPRO 100 UNIT/ML SUBCUT SCH ×2 (10:04→13:42)
[2019-04-14] MEDS: BUDESONIDE/FORMOTEROL 160-4.5 INHALER 6 GM INH SCH (10:07)
[2019-04-14 13:46] VITALS: BP 108/68
== END 2019-04-14 14:30 | disposition home health service (06) | DRG 190 ==
LOC: N.ED 14:18 → OBSVTOIN 17:27 → INTOOBSV 17:27 → SUATTDRO 17:27 → N.EDINP 17:27 → N.CC 18:46 → N.5E 04-12 17:30
PROVIDERS: ADMIT Internal Medicine; ATTEND Internal Medicine

== ENCOUNTER 2019-06-10 15:11 | Inpatient (IN) ==
[2019-06-10] MEDS ORDERED: SODIUM CHLORIDE 0.9% 1,000 ML IV STA (16:02)
[2019-06-10 16:35] LABS: Basophils % 0.3 % (0.0-0.8); Hematocrit 50.1 VOL% (35.7-47.0); Hemoglobin 15.6 GM/DL (12.0-16.0); Immature Granulocytes % 0.8 %; Immature Granulocytes Absolute 0.11 #; Lymphocytes # 0.6 10*3/uL (1.4-4.0); Lymphocytes % 4.3 % (21.3-54.2); Mean Corpuscular HGB Conc 31.1 GM/DL (32-36); Mean Corpuscular Volume 103.5 FL (87-102); Mean Platelet Volume 11.3 FL (9.6-12.0); Monocytes % 2.9 % (1.7-12.7); Neutrophils % 91.7 % (38.7-73.9); Platelet Count 279 T/CUMM (130-400); Red Blood Count 4.84 MC/CUMM (3.8-5.5); Red Cell Distribution Width 12.9 % (9.3-17.3); White Blood Count 13.5 T/CUMM (4-12)
[2019-06-10 16:46] LABS: Albumin 3.8 G/DL (3.4-5.0); Bilirubin,Total 0.6 MG/DL (0.2-1.0); Calcium 9.8 MG/DL (8.5-10.1); Osmolality,Calculated 305.8 MOS/KG (273-304); Total Protein 8.1 G/DL (6.4-8.3)
[2019-06-10] MEDS ORDERED: INSULIN REGULAR 100 UNIT/ML IV STA (16:50)
[2019-06-10] MEDS ORDERED: MAGNESIUM SULF RIDER 4 GM in PREMIX 1 EACH IV PRN (16:54)
[2019-06-10] MEDS ORDERED: SODIUM BICARB INJ 100 MEQ in STERILE WATER INJ 400 ML IV PRN (16:54)
[2019-06-10] MEDS ORDERED: MAGNESIUM SULF RIDER 2 GM in PREMIX 1 EACH IV PRN (16:54)
[2019-06-10] MEDS ORDERED: POTASSIUM CHLORIDE RIDER 10 MEQ in PREMIX 1 EACH IV PRN (16:54)
[2019-06-10] MEDS ORDERED: DEXTROSE 50% 25 GM/50 ML VIAL IV PRN ×2 (16:54)
[2019-06-10] MEDS ORDERED: SODIUM PHOSPHATE INJ 19.7 MMOL in SODIUM CHLORIDE 0.9% 250 ML IV PRN (16:54)
[2019-06-10] MEDS ORDERED: SODIUM CHLORIDE 0.9% 1,000 ML IV ONE ×2 (16:54→17:00)
[2019-06-10] MEDS ORDERED: INSULIN REGULAR 100 UNIT/ML IV ONE (17:00)
[2019-06-10] MEDS ORDERED: INSULIN REGULAR DRIP 100 ML IV SCH (17:00)
[2019-06-10] MEDS ORDERED: ALBUTEROL/IPRATROPIUM 3 ML NEB RESP TX PRN (17:06)
[2019-06-10] MEDS ORDERED: NICOTINE 21 MG/24 HR PATCH TRANSDERM PRN (17:07)
[2019-06-10] MEDS ORDERED: ONDANSETRON 4 MG/2 ML VIAL IV PRN (17:07)
[2019-06-10] MEDS ORDERED: BISACODYL 5 MG TABLET PO PRN (17:07)
[2019-06-10] MEDS ORDERED: traZODone 50 MG TABLET PO PRN (17:07)
[2019-06-10] MEDS ORDERED: PROMETHAZINE 25 MG/1 ML VIAL IM PRN (17:07)
[2019-06-10] MEDS ORDERED: guaiFENesin/DM ER 600-30 MG TABLET PO PRN (17:07)
[2019-06-10] MEDS ORDERED: ALUMINUM/MAGNES/SIMETH MAX STR 30 ML UDCUP PO PRN (17:07)
[2019-06-10] MEDS ORDERED: hydrALAZINE 20 MG/1 ML VIAL IV PRN (17:07)
[2019-06-10] MEDS ORDERED: ZALEPLON 5 MG CAPSULE PO PRN (17:07)
[2019-06-10] MEDS ORDERED: LACTULOSE 20 GM/30 ML UDCUP PO PRN (17:07)
[2019-06-10] MEDS ORDERED: GLUCAGON 1 MG VIAL IM PRN (17:07)
[2019-06-10] MEDS ORDERED: DOCUSATE SODIUM 100 MG CAPSULE PO PRN (17:07)
[2019-06-10] MEDS ORDERED: diphenhydrAMINE CAP 25 MG CAPSULE PO PRN (17:07)
[2019-06-10] MEDS ORDERED: SIMETHICONE CHEW 125 MG TABLET PO PRN (17:07)
[2019-06-10 17:08] LABS: Anisocytosis Slight; Lymphocytes 3 % (20-55); Macrocytosis Slight; Segmented Neutrophils 97 % (50-85); Total Cells Counted 100
[2019-06-10 17:09] LABS: Platelet Estimate Normal
[2019-06-10] MEDS ORDERED: LIDOCAINE 2% VISCOUS 100 ML BOTTLE SWISH/SWAL PRN (17:09)
[2019-06-10] MEDS ORDERED: SODIUM CHLORIDE 0.9% 100 ML IV ONE (17:15)
[2019-06-10] MEDS: cefTRIAXone 1,000 MG in SYRINGE 1 EACH IV SCH (17:24)
[2019-06-10] MEDS: SODIUM CHLORIDE 0.9% 1,000 ML IV SCH ×6 (18:32→22:38)
[2019-06-10 18:43] LABS: HIV Antigen/Antibody Result Nonreactive (Nonreactive)
[2019-06-10 18:51] LABS: Calcium 9.2 MG/DL (8.5-10.1); Osmolality,Calculated 293.8 MOS/KG (273-304)
[2019-06-10] MEDS: ALBUTEROL/IPRATROPIUM 3 ML NEB RESP TX SCH (19:37)
[2019-06-10 19:55] LABS: Apearance,Urine CLEAR (Clear); Bacteria,Urine Occasional /HPF (Few); Bilirubin,Urine Negative (Negative); Blood, Urine Moderate mg/dL (Negative); Glucose,Urine (UA) >=500 mg/dL (Negative); Ketones,Urine Negative (Negative); Mucus,Urine Occasional /LPF (Occasional); Nitrite,Urine Negative (Negative); Protein,Urine Negative; RBC,Urine 2 /HPF (0-4); Squamous Epithelial Cell,Urine Occasional /HPF (0-10); Urine Color Straw (Yellow); Urine Specific Gravity 1.035 (1.001-1.035); Urine Urobilinogen < 2.0 EU/DL (0.2-1.0)
[2019-06-10 20:04] LABS: Barbiturates Screen,Urine Negative (Negative); Benzodiazepines Screen,Urine Negative (Negative); Cannabinoid Screen,Urine Negative (Negative); Opiate Screen,Urine Negative (Negative); Phencyclidine Screen,Urine Negative (Negative)
[2019-06-10 20:54] LABS: ABG PCO2 44.6 MM HG (35-48); ABG PO2 85.5 MM HG (80-95); ABG TCO2 22.7 MMOL/L (23-27); Allen Test Positive
[2019-06-10 20:55] LABS: ABG Oxygen Saturation 96.6 % (95-100)
[2019-06-10] MEDS: BUDESONIDE/FORMOTEROL 160-4.5 INHALER 6 GM INH SCH (21:35)
[2019-06-10] MEDS: ALBUTEROL 2 MG TABLET PO SCH (21:36)
[2019-06-10] MEDS: NYSTATIN 500,000 UNIT/5 ML UDCUP SWISH/SWAL SCH (21:36)
[2019-06-10] MEDS ORDERED: SODIUM CHLORIDE 0.9% 1,000 ML IV SCH (22:01)
[2019-06-10] MEDS ORDERED: FUROSEMIDE 40 MG/4 ML VIAL ONE (22:35)
[2019-06-10] MEDS ORDERED: FUROSEMIDE 40 MG/4 ML VIAL IV ONE (22:36)
[2019-06-10] MEDS ORDERED: INSULIN GLARGINE 100 UNIT/ML SUBCUT ONE ×2 (22:49→23:00)
[2019-06-10] MEDS: HEPARIN 5,000 UNIT/1 ML VIAL SUBCUT SCH (22:54)
[2019-06-11] MEDS: INSULIN REGULAR 100 UNIT/ML SUBCUT SCH ×6 (00:39→20:53)
[2019-06-11 01:30] LABS: Calcium 9.3 MG/DL (8.5-10.1); Osmolality,Calculated 285.7 MOS/KG (273-304)
[2019-06-11] MEDS ORDERED: traMADol 50 MG TABLET PO PRN (02:28)
[2019-06-11] MEDS ORDERED: BENZONATATE 100 MG CAPSULE PO PRN (02:29)
[2019-06-11 06:20] LABS: Basophils % 0.2 % (0.0-0.8); Eosinophils % 0.2 % (0.00-10.9); Hematocrit 45.2 VOL% (35.7-47.0); Hemoglobin 14.9 GM/DL (12.0-16.0); Immature Granulocytes % 0.5 %; Immature Granulocytes Absolute 0.09 #; Lymphocytes # 3.1 10*3/uL (1.4-4.0); Lymphocytes % 18.6 % (21.3-54.2); Mean Corpuscular Volume 97.8 FL (87-102); Mean Platelet Volume 11.3 FL (9.6-12.0); Monocytes % 7.1 % (1.7-12.7); Neutrophils % 73.4 % (38.7-73.9); Platelet Count 269 T/CUMM (130-400); Red Blood Count 4.62 MC/CUMM (3.8-5.5); Red Cell Distribution Width 12.3 % (9.3-17.3); White Blood Count 16.7 T/CUMM (4-12)
[2019-06-11 06:35] LABS: Calcium 9.2 MG/DL (8.5-10.1); Osmolality,Calculated 279.5 MOS/KG (273-304)
[2019-06-11 06:41] LABS: Albumin 3.5 G/DL (3.4-5.0); Bilirubin,Total 1.2 MG/DL (0.2-1.0); Osmolality,Calculated 281.4 MOS/KG (273-304); Total Protein 7.3 G/DL (6.4-8.3)
[2019-06-11 06:42] LABS: Risk Ratio 6.87; VLDL CHOLESTEROL 72.6 MG/DL
[2019-06-11] MEDS: HEPARIN 5,000 UNIT/1 ML VIAL SUBCUT SCH ×3 (06:42→21:00)
[2019-06-11] MEDS: ALBUTEROL/IPRATROPIUM 3 ML NEB RESP TX SCH ×3 (07:40→19:32)
[2019-06-11] MEDS: BUDESONIDE/FORMOTEROL 160-4.5 INHALER 6 GM INH SCH ×2 (08:18→20:53)
[2019-06-11] MEDS: MONTELUKAST 10 MG TABLET PO SCH (08:19)
[2019-06-11] MEDS: NYSTATIN 500,000 UNIT/5 ML UDCUP SWISH/SWAL SCH ×4 (08:19→20:54)
[2019-06-11] MEDS: ALBUTEROL 2 MG TABLET PO SCH (08:19)
[2019-06-11] MEDS: SODIUM CHLOR 0.45% KCL 20 MEQ 20 MEQ/1,000 ML BAG IV SCH ×2 (08:35→16:07)
[2019-06-11] MEDS: POTASSIUM CHLORIDE 20 MEQ TABLET PO PRN ×3 (08:40→12:29)
[2019-06-11 09:39] LABS: Calcium 9.2 MG/DL (8.5-10.1); Osmolality,Calculated 275.7 MOS/KG (273-304)
[2019-06-11] MEDS ORDERED: SODIUM CHLORIDE 0.45% 1,000 ML IV SCH (09:54)
[2019-06-11 13:07] LABS: Calcium 8.9 MG/DL (8.5-10.1); Osmolality,Calculated 279.1 MOS/KG (273-304)
[2019-06-11] MEDS: cefTRIAXone 1,000 MG in SYRINGE 1 EACH IV SCH (17:08)
[2019-06-12] MEDS: INSULIN REGULAR 100 UNIT/ML SUBCUT SCH ×6 (00:46→21:36)
[2019-06-12] MEDS: ALBUTEROL 2 MG TABLET PO SCH ×4 (06:09→21:37)
[2019-06-12] MEDS: HEPARIN 5,000 UNIT/1 ML VIAL SUBCUT SCH ×3 (06:10→21:40)
[2019-06-12] MEDS: ALBUTEROL/IPRATROPIUM 3 ML NEB RESP TX SCH ×3 (07:25→19:52)
[2019-06-12] MEDS: MONTELUKAST 10 MG TABLET PO SCH (08:53)
[2019-06-12] MEDS: NYSTATIN 500,000 UNIT/5 ML UDCUP SWISH/SWAL SCH ×4 (08:53→21:37)
[2019-06-12] MEDS: BUDESONIDE/FORMOTEROL 160-4.5 INHALER 6 GM INH SCH ×2 (08:54→21:38)
[2019-06-12 08:56] LABS: Basophils # 0.1 10*3/uL (0.0-0.2); Basophils % 0.5 % (0.0-0.8); Eosinophils # 0.2 10*3/uL (0.0-0.87); Eosinophils % 2.4 % (0.00-10.9); Hematocrit 41.2 VOL% (35.7-47.0); Hemoglobin 13.4 GM/DL (12.0-16.0); Immature Granulocytes % 0.6 %; Immature Granulocytes Absolute 0.06 #; Lymphocytes # 2.6 10*3/uL (1.4-4.0); Mean Corpuscular HGB Conc 32.5 GM/DL (32-36); Mean Corpuscular Volume 97.6 FL (87-102); Mean Platelet Volume 11.1 FL (9.6-12.0); Monocytes % 7.2 % (1.7-12.7); Neutrophils % 63.3 % (38.7-73.9); Platelet Count 205 T/CUMM (130-400); Red Blood Count 4.22 MC/CUMM (3.8-5.5); Red Cell Distribution Width 12.6 % (9.3-17.3); White Blood Count 10.1 T/CUMM (4-12)
[2019-06-12 09:25] LABS: Calcium 8.3 MG/DL (8.5-10.1); Osmolality,Calculated 272.7 MOS/KG (273-304)
[2019-06-12] MEDS: AZITHROMYCIN INJ 500 MG in SODIUM CHLORIDE 0.9% 250 ML IV SCH (12:46)
[2019-06-12] MEDS: INSULIN GLARGINE 100 UNIT/ML SUBCUT SCH ×2 (12:47→21:38)
[2019-06-12] MEDS: gemfibroziL 600 MG TABLET PO SCH (16:18)
[2019-06-12] MEDS: metFORMIN 500 MG TABLET PO SCH (16:18)
[2019-06-12] MEDS: cefTRIAXone 1,000 MG in SYRINGE 1 EACH IV SCH (16:30)
[2019-06-13] MEDS: INSULIN REGULAR 100 UNIT/ML SUBCUT SCH ×5 (00:10→16:05)
[2019-06-13] MEDS: gemfibroziL 600 MG TABLET PO SCH ×2 (06:39→16:05)
[2019-06-13] MEDS: HEPARIN 5,000 UNIT/1 ML VIAL SUBCUT SCH ×2 (06:39→14:21)
[2019-06-13 07:04] LABS: Basophils # 0.1 10*3/uL (0.0-0.2); Basophils % 0.5 % (0.0-0.8); Eosinophils # 0.2 10*3/uL (0.0-0.87); Eosinophils % 2.1 % (0.00-10.9); Hematocrit 40.9 VOL% (35.7-47.0); Hemoglobin 12.9 GM/DL (12.0-16.0); Immature Granulocytes % 0.7 %; Immature Granulocytes Absolute 0.08 #; Lymphocytes # 2.4 10*3/uL (1.4-4.0); Lymphocytes % 22.4 % (21.3-54.2); Mean Corpuscular HGB Conc 31.5 GM/DL (32-36); Mean Corpuscular Volume 99.8 FL (87-102); Mean Platelet Volume 11.5 FL (9.6-12.0); Monocytes % 7.4 % (1.7-12.7); Neutrophils % 66.9 % (38.7-73.9); Platelet Count 206 T/CUMM (130-400); Red Cell Distribution Width 12.4 % (9.3-17.3); White Blood Count 10.7 T/CUMM (4-12)
[2019-06-13 07:08] LABS: Calcium 8.4 MG/DL (8.5-10.1); Osmolality,Calculated 271.2 MOS/KG (273-304)
[2019-06-13] MEDS: ALBUTEROL/IPRATROPIUM 3 ML NEB RESP TX SCH ×2 (07:30→13:59)
[2019-06-13] MEDS: INSULIN GLARGINE 100 UNIT/ML SUBCUT SCH (08:55)
[2019-06-13] MEDS: NYSTATIN 500,000 UNIT/5 ML UDCUP SWISH/SWAL SCH ×3 (08:55→16:04)
[2019-06-13] MEDS: metFORMIN 500 MG TABLET PO SCH ×2 (08:55→16:04)
[2019-06-13] MEDS: ALBUTEROL 2 MG TABLET PO SCH ×2 (09:13→14:21)
[2019-06-13] MEDS: MONTELUKAST 10 MG TABLET PO SCH (09:13)
[2019-06-13] MEDS: BUDESONIDE/FORMOTEROL 160-4.5 INHALER 6 GM INH SCH (09:13)
[2019-06-13] MEDS: AZITHROMYCIN INJ 500 MG in SODIUM CHLORIDE 0.9% 250 ML IV SCH (11:28)
[2019-06-13 15:50] VITALS: BP 108/78
[2019-06-13] MEDS: cefTRIAXone 1,000 MG in SYRINGE 1 EACH IV SCH (17:32)
== END 2019-06-13 18:17 | disposition home or self-care (01) | DRG 637 ==
LOC: N.ED 15:11 → SUATTDRO 17:27 → N.EDINP 17:27 → N.CLINP 17:55 → N.TELES 06-11 13:38
PROVIDERS: ADMIT Internal Medicine Nephrology; ATTEND Family Medicine

== ENCOUNTER 2020-03-15 00:13 | Observation (INO) ==
[2020-03-15] MEDS ORDERED: ALBUTEROL/IPRATROPIUM 3 ML NEB RESP TX STA ×2 (00:50→01:56)
[2020-03-15] MEDS ORDERED: methylPREDNISolone SOD SUC 125 MG/2 ML VIAL IV STA (00:50)
[2020-03-15 01:32] LABS: PT Patient Result 10.3 SECS (9.8-11.9)
[2020-03-15 01:41] LABS: Basophils # 0.1 10*3/uL (0.0-0.2); Basophils % 0.7 % (0.0-0.8); Eosinophils # 0.6 10*3/uL (0.0-0.87); Eosinophils % 5.2 % (0.00-10.9); Hematocrit 41.7 VOL% (35.7-47.0); Immature Granulocytes % 1.4 %; Immature Granulocytes Absolute 0.15 #; Lymphocytes # 2.5 10*3/uL (1.4-4.0); Lymphocytes % 23.8 % (21.3-54.2); Mean Corpuscular HGB Conc 31.2 GM/DL (32-36); Mean Corpuscular Volume 100.7 FL (87-102); Mean Platelet Volume 10.3 FL (9.6-12.0); Neutrophils % 60.9 % (38.7-73.9); Platelet Count 285 T/CUMM (130-400); Red Blood Count 4.14 MC/CUMM (3.8-5.5); Red Cell Distribution Width 12.4 % (9.3-17.3); White Blood Count 10.7 T/CUMM (4-12)
[2020-03-15 01:42] LABS: Alanine Aminotransferase 19 U/L (13-56); Alkaline Phosphatase 89 U/L (45-117); Aspartate Amino Transferase 19 U/L (0-37); Bilirubin,Total < 0.39 MG/DL (0.2-1.0); Blood Urea Nitrogen 15 MG/DL (7-18); Calcium 8.5 MG/DL (8.5-10.1); Carbon Dioxide 27 MMOL/L (21-32); Estimated Glom Filtration Rate 106 ML/MIN; Glucose 149 MG/DL (74-106); Osmolality,Calculated 282.4 MOS/KG (273-304); Potassium 4.2 MMOL/L (3.5-5.1); Sodium 140 MMOL/L (136-145); Total Protein 6.3 G/DL (6.4-8.3)
[2020-03-15] MEDS ORDERED: cefTRIAXone 1,000 MG in SODIUM CHLORIDE 0.9% 100 ML IV STA (01:56)
[2020-03-15 02:02] LABS: Bacteria,Urine Occasional /HPF (Few); Bilirubin,Urine Negative (Negative); Blood, Urine Negative (Negative); Glucose,Urine (UA) 150 mg/dL (Negative); Granular Casts,Urine 2 /LPF (0-1); Ketones,Urine Negative (Negative); Mucus,Urine Occasional /LPF (Occasional); Nitrite,Urine Negative (Negative); Protein,Urine Negative; RBC,Urine 2 /HPF (0-4); Squamous Epithelial Cell,Urine Occasional /HPF (0-10); Urine Appearance CLEAR (Clear); Urine Color Yellow (Yellow); Urine Specific Gravity 1.015 (1.001-1.035); Urine Urobilinogen < 2.0 EU/DL (0.2-1.0); WBC,Urine 1 /HPF (0-6)
[2020-03-15] MEDS ORDERED: GLUCAGON 1 MG VIAL IM PRN (02:26)
[2020-03-15] MEDS ORDERED: DEXTROSE 50% 25 GM/50 ML VIAL IV PRN (02:26)
[2020-03-15] MEDS ORDERED: NICOTINE 21 MG/24 HR PATCH TRANSDERM PRN (02:26)
[2020-03-15] MEDS ORDERED: ACETAMINOPHEN 325 MG TABLET PO PRN (02:26)
[2020-03-15] MEDS ORDERED: diphenhydrAMINE CAP 25 MG CAPSULE PO PRN (02:26)
[2020-03-15] MEDS ORDERED: guaiFENesin/DM ER 600-30 MG TABLET PO PRN (02:26)
[2020-03-15] MEDS ORDERED: ONDANSETRON 4 MG/2 ML VIAL IV PRN (02:26)
[2020-03-15] MEDS ORDERED: hydrALAZINE 20 MG/1 ML VIAL IV PRN (02:26)
[2020-03-15] MEDS: SODIUM CHLORIDE 0.9% 1,000 ML IV SCH ×2 (05:23→20:24)
[2020-03-15] MEDS: ALBUTEROL/IPRATROPIUM 3 ML NEB RESP TX SCH ×3 (07:19→20:00)
[2020-03-15] MEDS: methylPREDNISolone SOD SUC 40 MG/1 ML VIAL IV SCH ×2 (09:40→20:24)
[2020-03-16] MEDS: ALBUTEROL/IPRATROPIUM 3 ML NEB RESP TX SCH ×2 (00:50→07:03)
[2020-03-16] MEDS ORDERED: cefTRIAXone 1,000 MG in SYRINGE 1 EACH IV SCH (02:30)
[2020-03-16 06:03] LABS: Basophils % 0.1 % (0.0-0.8); Hemoglobin 12.9 GM/DL (12.0-16.0); Immature Granulocytes % 1.2 %; Immature Granulocytes Absolute 0.27 #; Lymphocytes # 1.4 10*3/uL (1.4-4.0); Lymphocytes % 6.3 % (21.3-54.2); Mean Corpuscular HGB Conc 32.3 GM/DL (32-36); Mean Corpuscular Volume 98.3 FL (87-102); Mean Platelet Volume 10.2 FL (9.6-12.0); Monocytes % 4.9 % (1.7-12.7); Neutrophils % 87.5 % (38.7-73.9); Platelet Count 307 T/CUMM (130-400); Red Blood Count 4.07 MC/CUMM (3.8-5.5); Red Cell Distribution Width 12.5 % (9.3-17.3); White Blood Count 22.6 T/CUMM (4-12)
[2020-03-16 06:37] LABS: Lymphocytes 14 % (20-55); Platelet Estimate Normal; Segmented Neutrophils 83 % (50-85)
[2020-03-16 06:38] LABS: Total Cells Counted 100
[2020-03-16 08:19] VITALS: BP 108/77
[2020-03-16] MEDS ORDERED: predniSONE 20 MG TABLET PO SCH (11:00)
[2020-03-16] MEDS ORDERED: CEFDINIR 300 MG CAPSULE PO SCH (11:00)
[2020-03-16] MEDS: SODIUM CHLORIDE 0.9% 1,000 ML IV SCH (11:07)
[2020-03-16] MEDS: methylPREDNISolone SOD SUC 40 MG/1 ML VIAL IV SCH (11:08)
== END 2020-03-16 11:54 | disposition home or self-care (01) ==
LOC: EDBD → EDUNIT# → N.ED 00:13 → N.EDINP 00:13 → N.5E 05:13
PROVIDERS: ADMIT Internal Medicine; ATTEND Internal Medicine

== ENCOUNTER 2020-04-27 05:08 | Observation (INO) ==
[2020-04-27] MEDS ORDERED: ALBUTEROL/IPRATROPIUM 3 ML NEB RESP TX STA (05:39)
[2020-04-27] MEDS ORDERED: methylPREDNISolone SOD SUC 125 MG/2 ML VIAL IV STA (05:39)
[2020-04-27] MEDS ORDERED: SODIUM CHLORIDE 0.9% 1,000 ML IV STA (05:39)
[2020-04-27 05:49] LABS: Basophils # 0.1 10*3/uL (0.0-0.2); Basophils % 0.5 % (0.0-0.8); Eosinophils # 0.4 10*3/uL (0.0-0.87); Eosinophils % 3.7 % (0.00-10.9); Hematocrit 46.2 VOL% (35.7-47.0); Immature Granulocytes % 0.5 %; Immature Granulocytes Absolute 0.06 #; Lymphocytes # 2.8 10*3/uL (1.4-4.0); Lymphocytes % 24.7 % (21.3-54.2); Mean Corpuscular HGB Conc 32.5 GM/DL (32-36); Mean Corpuscular Volume 98.5 FL (87-102); Mean Platelet Volume 10.3 FL (9.6-12.0); Monocytes % 8.5 % (1.7-12.7); Neutrophils % 62.1 % (38.7-73.9); Platelet Count 278 T/CUMM (130-400); Red Blood Count 4.69 MC/CUMM (3.8-5.5); Red Cell Distribution Width 12.3 % (9.3-17.3); White Blood Count 11.4 T/CUMM (4-12)
[2020-04-27 06:16] LABS: INR 0.9
[2020-04-27 06:32] LABS: Albumin 3.4 G/DL (3.4-5.0); Bilirubin,Total 0.5 MG/DL (0.2-1.0); Calcium 8.8 MG/DL (8.5-10.1); Osmolality,Calculated 277.8 MOS/KG (273-304); Potassium 4.1 MMOL/L (3.5-5.1); Total Protein 7.1 G/DL (5.0-7.5)
[2020-04-27] MEDS ORDERED: DEXTROSE 50% 25 GM/50 ML VIAL IV PRN ×2 (08:20)
[2020-04-27] MEDS ORDERED: ONDANSETRON 4 MG/2 ML VIAL IV PRN (08:20)
[2020-04-27] MEDS ORDERED: guaiFENesin/DM ER 600-30 MG TABLET PO PRN (08:20)
[2020-04-27] MEDS ORDERED: hydrALAZINE 20 MG/1 ML VIAL IV PRN (08:20)
[2020-04-27] MEDS ORDERED: ACETAMINOPHEN 325 MG TABLET PO PRN (08:20)
[2020-04-27] MEDS ORDERED: GLUCAGON 1 MG VIAL IM PRN (08:20)
[2020-04-27] MEDS ORDERED: NICOTINE 21 MG/24 HR PATCH TRANSDERM PRN (08:20)
[2020-04-27] MEDS ORDERED: CETIRIZINE 10 MG TABLET PO STA (08:24)
[2020-04-27] MEDS: ENOXAPARIN 40 MG/0.4 ML SYRINGE SUBCUT SCH (08:55)
[2020-04-27] MEDS: methylPREDNISolone SOD SUC 40 MG/1 ML VIAL IV SCH ×2 (08:55→16:02)
[2020-04-27] MEDS ORDERED: ALBUTEROL 2.5 MG/3 ML NEB RESP TX PRN (09:22)
[2020-04-27] MEDS: MONTELUKAST 10 MG TABLET PO SCH (10:09)
[2020-04-27] MEDS: AZITHROMYCIN 250 MG TABLET PO SCH (10:09)
[2020-04-27] MEDS: PANTOPRAZOLE 40 MG TABLET PO SCH (10:11)
[2020-04-27] MEDS: BUDESONIDE/FORMOTEROL 160-4.5 INHALER 6 GM INH SCH ×2 (11:57→22:05)
[2020-04-27] MEDS: INSULIN REGULAR 100 UNIT/ML SUBCUT SCH ×3 (11:57→22:03)
[2020-04-27] MEDS: ALBUTEROL/IPRATROPIUM 3 ML NEB RESP TX SCH ×2 (14:44→19:58)
[2020-04-27] MEDS ORDERED: INSULIN GLARGINE 100 UNIT/ML SUBCUT SCH (21:00)
[2020-04-28] MEDS: methylPREDNISolone SOD SUC 40 MG/1 ML VIAL IV SCH ×2 (00:46→08:42)
[2020-04-28] MEDS: ALBUTEROL/IPRATROPIUM 3 ML NEB RESP TX SCH ×2 (01:34→07:46)
[2020-04-28 03:26] LABS: Hemoglobin 12.9 GM/DL (12.0-16.0); Immature Granulocytes % 1.1 %; Immature Granulocytes Absolute 0.22 #; Lymphocytes # 1.1 10*3/uL (1.4-4.0); Lymphocytes % 5.5 % (21.3-54.2); Mean Corpuscular HGB Conc 32.3 GM/DL (32-36); Mean Corpuscular Volume 98.8 FL (87-102); Mean Platelet Volume 10.3 FL (9.6-12.0); Monocytes % 2.1 % (1.7-12.7); Neutrophils % 91.3 % (38.7-73.9); Platelet Count 261 T/CUMM (130-400); Red Blood Count 4.05 MC/CUMM (3.8-5.5); Red Cell Distribution Width 12.3 % (9.3-17.3); White Blood Count 20.4 T/CUMM (4-12)
[2020-04-28 03:56] LABS: Albumin 3.1 G/DL (3.4-5.0); Bilirubin,Total 0.8 MG/DL (0.2-1.0); Potassium 4.4 MMOL/L (3.5-5.1); Risk Ratio 4.33; Total Protein 6.7 G/DL (5.0-7.5); VLDL CHOLESTEROL 41.6 MG/DL
[2020-04-28 04:06] LABS: Band Neutrophils 1 % (0-10); Lymphocytes 3 % (20-55); Segmented Neutrophils 93 % (50-85); Total Cells Counted 100
[2020-04-28 04:07] LABS: Platelet Estimate Normal
[2020-04-28] MEDS: INSULIN REGULAR 100 UNIT/ML SUBCUT SCH ×2 (08:41→12:56)
[2020-04-28] MEDS: ENOXAPARIN 40 MG/0.4 ML SYRINGE SUBCUT SCH (08:41)
[2020-04-28] MEDS: MONTELUKAST 10 MG TABLET PO SCH (08:42)
[2020-04-28] MEDS: PANTOPRAZOLE 40 MG TABLET PO SCH (08:42)
[2020-04-28] MEDS: AZITHROMYCIN 250 MG TABLET PO SCH (08:42)
[2020-04-28] MEDS: BUDESONIDE/FORMOTEROL 160-4.5 INHALER 6 GM INH SCH (08:43)
[2020-04-28 12:16] VITALS: BP 114/72
== END 2020-04-28 13:10 | disposition home or self-care (01) ==
LOC: EDBD → EDUNIT# → N.ED 05:08 → N.EDINP 05:08 → N.5E 09:17
PROVIDERS: ADMIT Internal Medicine; ATTEND Internal Medicine

== ENCOUNTER 2020-06-26 02:35 | Observation (INO) ==
[2020-06-26] MEDS ORDERED: methylPREDNISolone SOD SUC 125 MG/2 ML VIAL IV STA (02:51)
[2020-06-26] MEDS ORDERED: ALBUTEROL/IPRATROPIUM 3 ML NEB RESP TX STA (02:51)
[2020-06-26] MEDS ORDERED: ONDANSETRON 4 MG/2 ML VIAL IV STA (02:51)
[2020-06-26] MEDS ORDERED: DEXAMETHASONE 10 MG/1 ML VIAL ONE (02:56)
[2020-06-26 03:00] LABS: Basophils # 0.1 10*3/uL (0.0-0.2); Basophils % 0.7 % (0.0-0.8); Eosinophils # 0.6 10*3/uL (0.0-0.87); Eosinophils % 5.8 % (0.00-10.9); Hematocrit 42.5 VOL% (35.7-47.0); Hemoglobin 13.8 GM/DL (12.0-16.0); Immature Granulocytes % 0.3 %; Immature Granulocytes Absolute 0.03 #; Lymphocytes # 2.9 10*3/uL (1.4-4.0); Lymphocytes % 30.6 % (21.3-54.2); Mean Corpuscular HGB Conc 32.5 GM/DL (32-36); Mean Corpuscular Volume 97.5 FL (87-102); Mean Platelet Volume 9.8 FL (9.6-12.0); Monocytes % 8.9 % (1.7-12.7); Neutrophils % 53.7 % (38.7-73.9); Platelet Count 261 T/CUMM (130-400); Red Blood Count 4.36 MC/CUMM (3.8-5.5); Red Cell Distribution Width 12.3 % (9.3-17.3); White Blood Count 9.5 T/CUMM (4-12)
[2020-06-26] MEDS ORDERED: ALBUTEROL NEB SOLN 5 MG/ML 20 ML/BOTTLE CONT NEB SCH (03:00)
[2020-06-26 03:11] LABS: ABG Base Excess 3.9 MMOL/L (-2.5-2.5); ABG HCO3 27.8 MMOL/L (20-26); ABG Oxygen Saturation 94.5 % (95-100); ABG PCO2 51.4 MM HG (35-48); ABG PO2 73.4 MM HG (80-95); ABG TCO2 26.3 MMOL/L (23-27)
[2020-06-26 03:18] LABS: Albumin 3.6 G/DL (3.4-5.0); Bilirubin,Total 0.5 MG/DL (0.2-1.0); Calcium 8.8 MG/DL (8.5-10.1); Osmolality,Calculated 278.7 MOS/KG (273-304); Potassium 4.3 MMOL/L (3.5-5.1)
[2020-06-26 03:33] LABS: INR 0.9; PT Patient Result 10.5 SECS (10.5-12.0)
[2020-06-26] MEDS ORDERED: DEXTROSE 50% 25 GM/50 ML VIAL IV PRN ×2 (03:45)
[2020-06-26] MEDS ORDERED: ZALEPLON 5 MG CAPSULE PO PRN (03:45)
[2020-06-26] MEDS ORDERED: GLUCAGON 1 MG VIAL IM PRN (03:45)
[2020-06-26] MEDS ORDERED: ONDANSETRON 4 MG/2 ML VIAL IV PRN (03:45)
[2020-06-26 04:18] LABS: Bacteria,Urine Occasional /HPF (Few); Bilirubin,Urine Negative (Negative); Blood, Urine Negative (Negative); Glucose,Urine (UA) >=500 mg/dL (Negative); Ketones,Urine Negative (Negative); Mucus,Urine Occasional /LPF (Occasional); Nitrite,Urine Negative (Negative); Protein,Urine Negative; RBC,Urine 1 /HPF (0-4); Squamous Epithelial Cell,Urine Occasional /HPF (0-10); Urine Appearance CLEAR (Clear); Urine Color Yellow (Yellow); Urine Specific Gravity 1.008 (1.001-1.035); Urine Urobilinogen < 2.0 EU/DL (0.2-1.0)
[2020-06-26 05:07] LABS: Barbiturates Screen,Urine Negative (Negative); Benzodiazepines Screen,Urine Negative (Negative); Cannabinoid Screen,Urine Negative (Negative); Opiate Screen,Urine Negative (Negative); Phencyclidine Screen,Urine Negative (Negative)
[2020-06-26] MEDS: cefTRIAXone 1,000 MG in SODIUM CHLORIDE 0.9% 100 ML IV SCH (05:15)
[2020-06-26] MEDS: ENOXAPARIN 40 MG/0.4 ML SYRINGE SUBCUT SCH (05:15)
[2020-06-26] MEDS: ALBUTEROL/IPRATROPIUM 3 ML NEB RESP TX SCH ×3 (07:26→19:34)
[2020-06-26] MEDS: INSULIN REGULAR 100 UNIT/ML SUBCUT SCH ×4 (09:21→21:10)
[2020-06-26] MEDS: BUDESONIDE/FORMOTEROL 160-4.5 INHALER 6 GM INH SCH ×2 (09:22→21:10)
[2020-06-26] MEDS: MONTELUKAST 10 MG TABLET PO SCH (12:00)
[2020-06-26] MEDS: methylPREDNISolone SOD SUC 40 MG/1 ML VIAL IV SCH ×2 (12:01→18:36)
[2020-06-26] MEDS ORDERED: MOMETASONE 50 MCG NASAL SPRAY 17 GM BOTTLE BOTH NARES SCH (12:30)
[2020-06-26] MEDS ORDERED: INSULIN GLARGINE 100 UNIT/ML SUBCUT SCH (21:00)
[2020-06-26] MEDS ORDERED: ATORVASTATIN 40 MG TABLET PO SCH (21:00)
[2020-06-26] MEDS: PANTOPRAZOLE 40 MG TABLET PO SCH (21:10)
[2020-06-27] MEDS: ALBUTEROL/IPRATROPIUM 3 ML NEB RESP TX SCH ×3 (00:15→14:32)
[2020-06-27] MEDS: methylPREDNISolone SOD SUC 40 MG/1 ML VIAL IV SCH (03:55)
[2020-06-27 05:23] LABS: Basophils % 0.1 % (0.0-0.8); Hematocrit 37.6 VOL% (35.7-47.0); Hemoglobin 12.2 GM/DL (12.0-16.0); Immature Granulocytes % 0.9 %; Immature Granulocytes Absolute 0.19 #; Lymphocytes # 1.2 10*3/uL (1.4-4.0); Lymphocytes % 5.8 % (21.3-54.2); Mean Corpuscular HGB Conc 32.4 GM/DL (32-36); Mean Corpuscular Volume 97.7 FL (87-102); Mean Platelet Volume 10.4 FL (9.6-12.0); Monocytes % 3.9 % (1.7-12.7); Neutrophils % 89.3 % (38.7-73.9); Platelet Count 244 T/CUMM (130-400); Red Blood Count 3.85 MC/CUMM (3.8-5.5); Red Cell Distribution Width 12.3 % (9.3-17.3); White Blood Count 20.5 T/CUMM (4-12)
[2020-06-27] MEDS: cefTRIAXone 1,000 MG in SODIUM CHLORIDE 0.9% 100 ML IV SCH (05:39)
[2020-06-27] MEDS: ENOXAPARIN 40 MG/0.4 ML SYRINGE SUBCUT SCH ×2 (05:40→05:49)
[2020-06-27 05:41] LABS: Albumin 3.1 G/DL (3.4-5.0); Bilirubin,Total 0.4 MG/DL (0.2-1.0); Calcium 9.5 MG/DL (8.5-10.1); Osmolality,Calculated 284.8 MOS/KG (273-304); Potassium 4.4 MMOL/L (3.5-5.1); Total Protein 6.5 G/DL (6.4-8.2)
[2020-06-27 05:46] LABS: Lymphocytes 4 % (20-55); Platelet Estimate Adequate; Segmented Neutrophils 93 % (50-85); Total Cells Counted 100
[2020-06-27 07:35] VITALS: BP 140/68
[2020-06-27] MEDS: PANTOPRAZOLE 40 MG TABLET PO SCH (08:50)
[2020-06-27] MEDS: MONTELUKAST 10 MG TABLET PO SCH (08:50)
[2020-06-27] MEDS: INSULIN REGULAR 100 UNIT/ML SUBCUT SCH (08:51)
[2020-06-27] MEDS: BUDESONIDE/FORMOTEROL 160-4.5 INHALER 6 GM INH SCH (08:51)
[2020-06-27] MEDS ORDERED: LEVOFLOXACIN 750 MG TABLET PO SCH (09:30)
== END 2020-06-27 15:25 | disposition home or self-care (01) ==
LOC: EDUNIT# → EDBD → N.ED 02:35 → N.EDINP 02:35 → N.4E 05:00
PROVIDERS: ADMIT Internal Medicine; ATTEND Internal Medicine

== ENCOUNTER 2020-11-30 19:50 | Observation (INO) ==
[2020-11-30] MEDS ORDERED: SODIUM CHLORIDE 0.9% 1,000 ML IV STA (21:32)
[2020-11-30] MEDS ORDERED: methylPREDNISolone SOD SUC 125 MG/2 ML VIAL IV STA (21:32)
[2020-11-30] MEDS ORDERED: ALBUTEROL/IPRATROPIUM 3 ML NEB RESP TX STA (21:32)
[2020-11-30 21:37] LABS: Basophils % 0.5 % (0.0-0.8); Eosinophils # 0.1 10*3/uL (0.0-0.87); Eosinophils % 1.9 % (0.00-10.9); Hematocrit 41.1 VOL% (35.7-47.0); Hemoglobin 13.2 GM/DL (12.0-16.0); Immature Granulocytes % 0.3 %; Immature Granulocytes Absolute 0.02 #; Lymphocytes # 1.7 10*3/uL (1.4-4.0); Lymphocytes % 23.2 % (21.3-54.2); Mean Corpuscular HGB Conc 32.1 GM/DL (32-36); Mean Corpuscular Volume 98.1 FL (87-102); Monocytes % 12.5 % (1.7-12.7); Neutrophils % 61.6 % (38.7-73.9); Platelet Count 217 T/CUMM (130-400); Red Blood Count 4.19 MC/CUMM (3.8-5.5); White Blood Count 7.5 T/CUMM (4-12)
[2020-11-30 21:56] LABS: Albumin 3.5 G/DL (3.4-5.0); Bilirubin,Total 0.5 MG/DL (0.20-1.00); Calcium 8.8 MG/DL (8.5-10.1); Osmolality,Calculated 279.4 MOS/KG (273-304); Potassium 3.8 MMOL/L (3.5-5.1); Total Protein 6.9 G/DL (6.4-8.2)
[2020-12-01] MEDS ORDERED: ALBUTEROL/IPRATROPIUM 3 ML NEB RESP TX STA (01:35)
[2020-12-01] MEDS ORDERED: DOCUSATE SODIUM 100 MG CAPSULE PO PRN (01:51)
[2020-12-01] MEDS ORDERED: ACETAMINOPHEN 325 MG TABLET PO PRN (01:51)
[2020-12-01] MEDS ORDERED: DEXTROSE 50% 25 GM/50 ML VIAL IV PRN (01:51)
[2020-12-01] MEDS ORDERED: ONDANSETRON 4 MG/2 ML VIAL IV PRN (01:51)
[2020-12-01] MEDS ORDERED: GLUCAGON 1 MG VIAL IM PRN (01:51)
[2020-12-01 02:12] LABS: Bilirubin,Urine Negative (Negative); Blood, Urine Negative (Negative); Glucose,Urine (UA) 150 mg/dL (Negative); Ketones,Urine 5 mg/dL (Negative); Mucus,Urine Occasional /LPF (Occasional); Nitrite,Urine Negative (Negative); Protein,Urine Negative; RBC,Urine 2 /HPF (0-4); Squamous Epithelial Cell,Urine Occasional /HPF (0-10); Urine Appearance CLEAR (Clear); Urine Color Straw (Yellow); Urine Specific Gravity 1.019 (1.001-1.035); Urine Urobilinogen < 2.0 EU/DL (0.2-1.0)
[2020-12-01] MEDS ORDERED: POTASSIUM CHLORIDE RIDER 10 MEQ/100 ML PREMIX IV PRN (02:12)
[2020-12-01] MEDS ORDERED: MAGNESIUM SULF RIDER 2 GM/50 ML PREMIX IV PRN (02:12)
[2020-12-01] MEDS ORDERED: MAGNESIUM SULF RIDER 4 GM/100 ML PREMIX IV PRN (02:12)
[2020-12-01] MEDS ORDERED: POTASSIUM CHLORIDE 20 MEQ TABLET PO PRN (02:12)
[2020-12-01] MEDS: PIPERACILLIN/TAZOBACTAM 3,375 MG in SODIUM CHLORIDE 0.9% 100 ML IV SCH ×3 (03:58→18:07)
[2020-12-01] MEDS: methylPREDNISolone SOD SUC 125 MG/2 ML VIAL IV SCH ×4 (04:38→21:26)
[2020-12-01] MEDS ORDERED: ALBUTEROL 2.5 MG/3 ML NEB RESP TX PRN (06:47)
[2020-12-01] MEDS ORDERED: ALBUTEROL/IPRATROPIUM 3 ML NEB RESP TX SCH (07:00)
[2020-12-01 07:25] LABS: Basophils % 0.4 % (0.0-0.8); Hematocrit 44.3 VOL% (35.7-47.0); Hemoglobin 14.6 GM/DL (12.0-16.0); Immature Granulocytes % 0.6 %; Immature Granulocytes Absolute 0.05 #; Lymphocytes # 0.9 10*3/uL (1.4-4.0); Lymphocytes % 10.8 % (21.3-54.2); Mean Corpuscular Volume 98.2 FL (87-102); Neutrophils % 87.2 % (38.7-73.9); Platelet Count 254 T/CUMM (130-400); Red Blood Count 4.51 MC/CUMM (3.8-5.5); Red Cell Distribution Width 12.9 % (9.3-17.3); White Blood Count 7.9 T/CUMM (4-12)
[2020-12-01 07:47] LABS: Anisocytosis Slight; Band Neutrophils 5 % (0-10); Lymphocytes 6 % (20-55); Macrocytosis 1+; Platelet Estimate Normal; Segmented Neutrophils 87 % (50-85); Total Cells Counted 100
[2020-12-01 07:54] LABS: Calcium 9.5 MG/DL (8.5-10.1); Osmolality,Calculated 279.7 MOS/KG (273-304); Potassium 4.1 MMOL/L (3.5-5.1); Thyroid Stimulating Hormone 0.368 uIU/ml (0.358-3.74)
[2020-12-01] MEDS ORDERED: NICOTINE 21 MG/24 HR PATCH TRANSDERM PRN (09:00)
[2020-12-01] MEDS: MONTELUKAST 10 MG TABLET PO SCH (09:37)
[2020-12-01] MEDS: ENOXAPARIN 40 MG/0.4 ML SYRINGE SUBCUT SCH (09:37)
[2020-12-01] MEDS: INSULIN REGULAR 100 UNIT/ML SUBCUT SCH ×4 (09:37→21:24)
[2020-12-01] MEDS: PANTOPRAZOLE 40 MG TABLET PO SCH (09:37)
[2020-12-01] MEDS: BUDESONIDE/FORMOTEROL 160-4.5 INHALER 6 GM INH SCH ×2 (10:55→21:25)
[2020-12-01] MEDS: ALBUTEROL/IPRATROPIUM 3 ML NEB RESP TX SCH ×4 (13:09→23:48)
[2020-12-01] MEDS ORDERED: INSULIN GLARGINE 100 UNIT/ML SUBCUT SCH (21:00)
[2020-12-01] MEDS ORDERED: ATORVASTATIN 40 MG TABLET PO SCH (21:00)
[2020-12-02] MEDS: methylPREDNISolone SOD SUC 125 MG/2 ML VIAL IV SCH ×2 (03:16→11:22)
[2020-12-02] MEDS: PIPERACILLIN/TAZOBACTAM 3,375 MG in SODIUM CHLORIDE 0.9% 100 ML IV SCH ×2 (03:17→13:28)
[2020-12-02] MEDS: ALBUTEROL/IPRATROPIUM 3 ML NEB RESP TX SCH ×3 (04:10→10:40)
[2020-12-02 05:36] LABS: Basophils % 0.1 % (0.0-0.8); Hematocrit 41.7 VOL% (35.7-47.0); Hemoglobin 13.3 GM/DL (12.0-16.0); Immature Granulocytes % 0.8 %; Lymphocytes # 1.2 10*3/uL (1.4-4.0); Lymphocytes % 9.1 % (21.3-54.2); Mean Corpuscular HGB Conc 31.9 GM/DL (32-36); Mean Corpuscular Volume 98.3 FL (87-102); Mean Platelet Volume 10.3 FL (9.6-12.0); Monocytes % 4.1 % (1.7-12.7); Neutrophils % 85.9 % (38.7-73.9); Platelet Count 251 T/CUMM (130-400); Red Blood Count 4.24 MC/CUMM (3.8-5.5); Red Cell Distribution Width 12.9 % (9.3-17.3)
[2020-12-02 06:05] LABS: Calcium 9.1 MG/DL (8.5-10.1); Osmolality,Calculated 286.3 MOS/KG (273-304); Potassium 3.8 MMOL/L (3.5-5.1)
[2020-12-02] MEDS: INSULIN REGULAR 100 UNIT/ML SUBCUT SCH ×2 (08:02→11:22)
[2020-12-02] MEDS: PANTOPRAZOLE 40 MG TABLET PO SCH (08:02)
[2020-12-02] MEDS: MONTELUKAST 10 MG TABLET PO SCH (08:02)
[2020-12-02] MEDS: BUDESONIDE/FORMOTEROL 160-4.5 INHALER 6 GM INH SCH (08:03)
[2020-12-02] MEDS: ENOXAPARIN 40 MG/0.4 ML SYRINGE SUBCUT SCH (08:08)
[2020-12-02 11:43] VITALS: BP 119/82
== END 2020-12-02 13:45 | disposition home or self-care (01) ==
LOC: N.ED 19:50 → N.EDINP 19:50 → N.3E 12-01 04:52
PROVIDERS: ADMIT Internal Medicine; ATTEND Internal Medicine

== ENCOUNTER 2020-12-06 14:06 | Inpatient (IN) ==
[2020-12-06] MEDS ORDERED: methylPREDNISolone SOD SUC 125 MG/2 ML VIAL IV STA (14:39)
[2020-12-06] MEDS ORDERED: ALBUTEROL NEB SOLN 5 MG/ML 20 ML/BOTTLE CONT NEB SCH (15:00)
[2020-12-06 15:03] LABS: Basophils % 0.2 % (0.0-0.8); Eosinophils % 0.2 % (0.00-10.9); Hematocrit 42.5 VOL% (35.7-47.0); Hemoglobin 14.2 GM/DL (12.0-16.0); Immature Granulocytes % 1.2 %; Immature Granulocytes Absolute 0.15 #; Lymphocytes # 1.4 10*3/uL (1.4-4.0); Lymphocytes % 11.1 % (21.3-54.2); Mean Corpuscular HGB Conc 33.4 GM/DL (32-36); Mean Corpuscular Volume 101.9 FL (87-102); Mean Platelet Volume 10.8 FL (9.6-12.0); Monocytes % 2.9 % (1.7-12.7); Neutrophils % 84.4 % (38.7-73.9); Platelet Count 195 T/CUMM (130-400); Red Blood Count 4.17 MC/CUMM (3.8-5.5); Red Cell Distribution Width 12.8 % (9.3-17.3); White Blood Count 12.7 T/CUMM (4-12)
[2020-12-06 15:58] LABS: Albumin 3.4 G/DL (3.4-5.0); Bilirubin,Total 1.4 MG/DL (0.20-1.00); Calcium 9.1 MG/DL (8.5-10.1); Osmolality,Calculated 278.8 MOS/KG (273-304); Potassium 4.5 MMOL/L (3.5-5.1); Total Protein 7.4 G/DL (6.4-8.2)
[2020-12-06] MEDS ORDERED: ENOXAPARIN 30 MG/0.3 ML SYRINGE SUBCUT STA (16:20)
[2020-12-06] MEDS ORDERED: ASPIRIN CHEW 81 MG TABLET PO STA (16:21)
[2020-12-06] MEDS ORDERED: GLUCAGON 1 MG VIAL IM PRN (16:26)
[2020-12-06] MEDS ORDERED: DEXTROSE 50% 25 GM/50 ML VIAL IV PRN ×2 (16:26→16:36)
[2020-12-06 16:29] LABS: Platelet Estimate Adequate; Polychromasia Slight
[2020-12-06] MEDS ORDERED: DOCUSATE SODIUM 100 MG CAPSULE PO PRN (16:36)
[2020-12-06] MEDS ORDERED: ACETAMINOPHEN 325 MG TABLET PO PRN (16:36)
[2020-12-06] MEDS ORDERED: hydrALAZINE 20 MG/1 ML VIAL IV PRN (16:36)
[2020-12-06] MEDS ORDERED: ZALEPLON 5 MG CAPSULE PO PRN (16:36)
[2020-12-06] MEDS ORDERED: ALBUTEROL 2.5 MG/3 ML NEB RESP TX PRN (16:36)
[2020-12-06] MEDS ORDERED: SIMETHICONE CHEW 125 MG TABLET PO PRN (16:36)
[2020-12-06] MEDS ORDERED: ONDANSETRON 4 MG/2 ML VIAL IV PRN (16:36)
[2020-12-06] MEDS ORDERED: ENOXAPARIN 80 MG/0.8 ML SYRINGE SUBCUT ONE (16:44)
[2020-12-06] MEDS: methylPREDNISolone SOD SUC 40 MG/1 ML VIAL IV SCH (17:57)
[2020-12-06] MEDS: LEVOFLOXACIN INJ 750 MG/150 ML PREMIX IV SCH (18:09)
[2020-12-06] MEDS: ALBUTEROL/IPRATROPIUM 3 ML NEB RESP TX SCH (19:57)
[2020-12-06] MEDS: INSULIN LISPRO 100 UNIT/ML SUBCUT SCH (21:51)
[2020-12-06] MEDS: guaiFENesin/DM ER 600-30 MG TABLET PO SCH (21:55)
[2020-12-06] MEDS: BUDESONIDE/FORMOTEROL 160-4.5 INHALER 6 GM INH SCH (21:55)
[2020-12-06] MEDS ORDERED: methylPREDNISolone SOD SUC 40 MG/1 ML VIAL IV SCH (22:30)
[2020-12-07] MEDS: ALBUTEROL/IPRATROPIUM 3 ML NEB RESP TX SCH ×4 (01:57→19:35)
[2020-12-07] MEDS: methylPREDNISolone SOD SUC 40 MG/1 ML VIAL IV SCH ×3 (02:35→16:53)
[2020-12-07 03:10] LABS: ABG HCO3 33.6 MMOL/L (20-26); ABG Oxygen Saturation 95.1 % (95-100); ABG PCO2 50.1 MM HG (35-48); ABG PH 7.444 (7.35-7.45); ABG PO2 75.3 MM HG (80-95); ABG TCO2 35.1 MMOL/L (23-27)
[2020-12-07 04:07] LABS: Basophils % 0.1 % (0.0-0.8); Hematocrit 40.7 VOL% (35.7-47.0); Hemoglobin 13.6 GM/DL (12.0-16.0); Immature Granulocytes % 1.1 %; Immature Granulocytes Absolute 0.15 #; Lymphocytes # 1.1 10*3/uL (1.4-4.0); Lymphocytes % 7.9 % (21.3-54.2); Mean Corpuscular HGB Conc 33.4 GM/DL (32-36); Mean Corpuscular Volume 101.8 FL (87-102); Mean Platelet Volume 10.8 FL (9.6-12.0); Monocytes % 1.7 % (1.7-12.7); Neutrophils % 89.2 % (38.7-73.9); Platelet Count 247 T/CUMM (130-400); Red Cell Distribution Width 12.9 % (9.3-17.3); White Blood Count 13.5 T/CUMM (4-12)
[2020-12-07 04:42] LABS: Calcium 9.1 MG/DL (8.5-10.1); Osmolality,Calculated 279.7 MOS/KG (273-304); Potassium 4.2 MMOL/L (3.5-5.1); Thyroid Stimulating Hormone 0.581 uIU/ml (0.358-3.74)
[2020-12-07] MEDS: BUDESONIDE/FORMOTEROL 160-4.5 INHALER 6 GM INH SCH ×3 (09:08→22:01)
[2020-12-07] MEDS: INSULIN LISPRO 100 UNIT/ML SUBCUT SCH ×4 (09:09→22:00)
[2020-12-07] MEDS: guaiFENesin/DM ER 600-30 MG TABLET PO SCH (09:10)
[2020-12-07] MEDS: MONTELUKAST 10 MG TABLET PO SCH (09:10)
[2020-12-07] MEDS: PANTOPRAZOLE 40 MG TABLET PO SCH (09:10)
[2020-12-07] MEDS: NICOTINE 21 MG/24 HR PATCH TRANSDERM SCH (14:31)
[2020-12-07 15:57] LABS: Folate 15.14 NG/ML (5.38-24.0)
[2020-12-07] MEDS: LEVOFLOXACIN INJ 750 MG/150 ML PREMIX IV SCH (16:54)
[2020-12-07] MEDS: ENOXAPARIN 40 MG/0.4 ML SYRINGE SUBCUT SCH (16:54)
[2020-12-07] MEDS: ACETYLCYSTEINE 20% 800 MG/4 ML VIAL RESP TX SCH (19:35)
[2020-12-07] MEDS: ATORVASTATIN 40 MG TABLET PO SCH (22:00)
[2020-12-08] MEDS: ACETYLCYSTEINE 20% 800 MG/4 ML VIAL RESP TX SCH ×4 (01:40→19:10)
[2020-12-08] MEDS: ALBUTEROL/IPRATROPIUM 3 ML NEB RESP TX SCH ×4 (01:40→19:10)
[2020-12-08] MEDS: methylPREDNISolone SOD SUC 40 MG/1 ML VIAL IV SCH ×3 (02:20→17:11)
[2020-12-08 05:41] LABS: Basophils % 0.1 % (0.0-0.8); Hematocrit 39.2 VOL% (35.7-47.0); Hemoglobin 13.2 GM/DL (12.0-16.0); Immature Granulocytes % 1.2 %; Immature Granulocytes Absolute 0.26 #; Lymphocytes # 1.1 10*3/uL (1.4-4.0); Lymphocytes % 4.9 % (21.3-54.2); Mean Corpuscular HGB Conc 33.7 GM/DL (32-36); Mean Corpuscular Volume 102.3 FL (87-102); Mean Platelet Volume 10.6 FL (9.6-12.0); Monocytes % 3.8 % (1.7-12.7); Platelet Count 293 T/CUMM (130-400); Red Blood Count 3.83 MC/CUMM (3.8-5.5); Red Cell Distribution Width 13.3 % (9.3-17.3); White Blood Count 22.4 T/CUMM (4-12)
[2020-12-08 06:04] LABS: Calcium 9.2 MG/DL (8.5-10.1); Potassium 4.3 MMOL/L (3.5-5.1)
[2020-12-08 06:25] LABS: Hypochromasia 1+; Lymphocytes 2 % (20-55); Segmented Neutrophils 95 % (50-85); Target Cells Slight; Total Cells Counted 100
[2020-12-08 06:26] LABS: Macrocytosis Slight; Platelet Estimate Normal
[2020-12-08 06:44] LABS: Risk Ratio 3.45; VLDL Cholesterol 35.8 MG/DL
[2020-12-08] MEDS: INSULIN LISPRO 100 UNIT/ML SUBCUT SCH ×4 (10:01→23:38)
[2020-12-08] MEDS: NICOTINE 21 MG/24 HR PATCH TRANSDERM SCH (10:04)
[2020-12-08] MEDS: BUDESONIDE/FORMOTEROL 160-4.5 INHALER 6 GM INH SCH ×2 (10:05→21:27)
[2020-12-08] MEDS: MONTELUKAST 10 MG TABLET PO SCH (10:05)
[2020-12-08] MEDS: PANTOPRAZOLE 40 MG TABLET PO SCH (10:05)
[2020-12-08] MEDS ORDERED: AZITHROMYCIN 250 MG TABLET PO ONE (15:43)
[2020-12-08] MEDS ORDERED: cefTRIAXone 1,000 MG VIAL IM SCH (16:00)
[2020-12-08] MEDS: ENOXAPARIN 40 MG/0.4 ML SYRINGE SUBCUT SCH (17:12)
[2020-12-08] MEDS: FLUCONAZOLE INJ 200 MG/100 ML PREMIX IV SCH (17:13)
[2020-12-08] MEDS: ATORVASTATIN 40 MG TABLET PO SCH (21:26)
[2020-12-09] MEDS: methylPREDNISolone SOD SUC 40 MG/1 ML VIAL IV SCH ×3 (00:44→17:12)
[2020-12-09] MEDS: ACETYLCYSTEINE 20% 800 MG/4 ML VIAL RESP TX SCH ×2 (01:00→07:34)
[2020-12-09] MEDS: ALBUTEROL/IPRATROPIUM 3 ML NEB RESP TX SCH ×4 (01:00→19:03)
[2020-12-09 06:13] LABS: Basophils # 0.1 10*3/uL (0.0-0.2); Basophils % 0.3 % (0.0-0.8); Hemoglobin 12.9 GM/DL (12.0-16.0); Immature Granulocytes % 4.6 %; Immature Granulocytes Absolute 0.95 #; Lymphocytes # 0.9 10*3/uL (1.4-4.0); Lymphocytes % 4.4 % (21.3-54.2); Mean Corpuscular HGB Conc 34.9 GM/DL (32-36); Mean Corpuscular Volume 102.8 FL (87-102); Mean Platelet Volume 10.2 FL (9.6-12.0); Monocytes % 2.2 % (1.7-12.7); Neutrophils % 88.5 % (38.7-73.9); Platelet Count 287 T/CUMM (130-400); Red Cell Distribution Width 13.6 % (9.3-17.3); White Blood Count 20.6 T/CUMM (4-12)
[2020-12-09 06:26] LABS: Calcium 8.9 MG/DL (8.5-10.1); Osmolality,Calculated 281.8 MOS/KG (273-304); Potassium 4.3 MMOL/L (3.5-5.1)
[2020-12-09 06:31] LABS: Folate 8.47 NG/ML (5.38-24.0)
[2020-12-09 07:00] LABS: Band Neutrophils 1 % (0-10); Hypochromasia 1+; Lymphocytes 6 % (20-55); Segmented Neutrophils 92 % (50-85); Total Cells Counted 100
[2020-12-09 07:01] LABS: Macrocytosis Slight
[2020-12-09] MEDS: INSULIN LISPRO 100 UNIT/ML SUBCUT SCH ×4 (10:13→22:58)
[2020-12-09] MEDS: NICOTINE 21 MG/24 HR PATCH TRANSDERM SCH (10:14)
[2020-12-09] MEDS: AZITHROMYCIN 250 MG TABLET PO SCH (10:14)
[2020-12-09] MEDS: MONTELUKAST 10 MG TABLET PO SCH (10:14)
[2020-12-09] MEDS: BUDESONIDE/FORMOTEROL 160-4.5 INHALER 6 GM INH SCH ×2 (10:14→22:59)
[2020-12-09] MEDS: PANTOPRAZOLE 40 MG TABLET PO SCH (10:14)
[2020-12-09] MEDS ORDERED: cefTRIAXone 1,000 MG VIAL IV SCH (15:31)
[2020-12-09] MEDS: cefTRIAXone 1,000 MG in SODIUM CHLORIDE 0.9% 100 ML IV SCH (17:13)
[2020-12-09] MEDS: FLUCONAZOLE INJ 200 MG/100 ML PREMIX IV SCH (17:13)
[2020-12-09] MEDS ORDERED: INSULIN GLARGINE 100 UNIT/ML SUBCUT SCH (21:00)
[2020-12-09] MEDS: ATORVASTATIN 40 MG TABLET PO SCH (22:58)
[2020-12-10] MEDS: methylPREDNISolone SOD SUC 40 MG/1 ML VIAL IV SCH ×3 (02:19→16:32)
[2020-12-10] MEDS: ALBUTEROL/IPRATROPIUM 3 ML NEB RESP TX SCH ×4 (05:43→19:21)
[2020-12-10 06:04] LABS: Basophils # 0.1 10*3/uL (0.0-0.2); Basophils % 0.2 % (0.0-0.8); Hematocrit 38.2 VOL% (35.7-47.0); Hemoglobin 12.2 GM/DL (12.0-16.0); Immature Granulocytes % 5.2 %; Lymphocytes # 1.2 10*3/uL (1.4-4.0); Lymphocytes % 5.3 % (21.3-54.2); Mean Corpuscular HGB Conc 31.9 GM/DL (32-36); Mean Corpuscular Volume 102.1 FL (87-102); Mean Platelet Volume 10.5 FL (9.6-12.0); Monocytes % 3.5 % (1.7-12.7); Neutrophils % 85.8 % (38.7-73.9); Platelet Count 283 T/CUMM (130-400); Red Blood Count 3.74 MC/CUMM (3.8-5.5); Red Cell Distribution Width 12.9 % (9.3-17.3); White Blood Count 23.3 T/CUMM (4-12)
[2020-12-10 06:10] LABS: INR 1.1; PT Patient Result 11.9 SECS (10.5-12.0); Partial Thromboplastin Time 25.7 SECS (23.8-32.1)
[2020-12-10 06:33] LABS: Hypochromasia 1+; Lymphocytes 5 % (20-55); Macrocytosis Slight; Platelet Estimate Normal; Segmented Neutrophils 89 % (50-85); Total Cells Counted 100
[2020-12-10 06:39] LABS: Calcium 8.9 MG/DL (8.5-10.1); Osmolality,Calculated 289.3 MOS/KG (273-304); Potassium 4.6 MMOL/L (3.5-5.1)
[2020-12-10] MEDS ORDERED: BENZONATATE 100 MG CAPSULE PO ONE (07:30)
[2020-12-10] MEDS ORDERED: diphenhydrAMINE 50 MG/1 ML VIAL IM ONE (07:30)
[2020-12-10] MEDS ORDERED: LIDOCAINE 2% 20 ML VIAL RESP TX ONE (08:00)
[2020-12-10] MEDS ORDERED: LIDOCAINE 1% 20 ML VIAL MISC INJ ONE (08:00)
[2020-12-10] MEDS ORDERED: LIDOCAINE 2% VISCOUS 100 ML BOTTLE SWISH/SPIT ONE (08:00)
[2020-12-10] MEDS ORDERED: MIDAZOLAM 2 MG/2 ML VIAL IV ONE (08:00)
[2020-12-10] MEDS ORDERED: ALBUTEROL/IPRATROPIUM 3 ML NEB RESP TX ONE (09:09)
[2020-12-10] MEDS ORDERED: GLUCAGON 1 MG VIAL IM PRN (09:17)
[2020-12-10] MEDS ORDERED: DEXTROSE 50% 25 GM/50 ML VIAL IV PRN (09:17)
[2020-12-10] MEDS: INSULIN LISPRO 100 UNIT/ML SUBCUT SCH ×4 (10:15→21:20)
[2020-12-10] MEDS: NICOTINE 21 MG/24 HR PATCH TRANSDERM SCH (11:35)
[2020-12-10] MEDS: PANTOPRAZOLE 40 MG TABLET PO SCH (11:36)
[2020-12-10] MEDS: AZITHROMYCIN 250 MG TABLET PO SCH (11:36)
[2020-12-10] MEDS: MONTELUKAST 10 MG TABLET PO SCH (11:36)
[2020-12-10] MEDS: BUDESONIDE/FORMOTEROL 160-4.5 INHALER 6 GM INH SCH ×2 (11:47→21:21)
[2020-12-10] MEDS ORDERED: MORPHINE 2 MG/1 ML SYRINGE IV PRN (14:15)
[2020-12-10] MEDS: cefTRIAXone 1,000 MG in SODIUM CHLORIDE 0.9% 100 ML IV SCH (15:03)
[2020-12-10] MEDS: FLUCONAZOLE INJ 200 MG/100 ML PREMIX IV SCH (16:14)
[2020-12-10] MEDS ORDERED: INSULIN GLARGINE 100 UNIT/ML SUBCUT SCH (21:00)
[2020-12-10] MEDS: ATORVASTATIN 40 MG TABLET PO SCH (21:20)
[2020-12-11] MEDS: ALBUTEROL/IPRATROPIUM 3 ML NEB RESP TX SCH ×4 (00:09→20:09)
[2020-12-11] MEDS: methylPREDNISolone SOD SUC 40 MG/1 ML VIAL IV SCH ×3 (01:33→21:02)
[2020-12-11 06:36] LABS: Basophils # 0.1 10*3/uL (0.0-0.2); Basophils % 0.3 % (0.0-0.8); Hematocrit 38.9 VOL% (35.7-47.0); Hemoglobin 12.8 GM/DL (12.0-16.0); Immature Granulocytes % 4.3 %; Immature Granulocytes Absolute 1.06 #; Lymphocytes % 3.9 % (21.3-54.2); Mean Corpuscular HGB Conc 32.9 GM/DL (32-36); Mean Corpuscular Volume 100.3 FL (87-102); Mean Platelet Volume 10.8 FL (9.6-12.0); Monocytes % 4.5 % (1.7-12.7); Platelet Count 289 T/CUMM (130-400); Red Blood Count 3.88 MC/CUMM (3.8-5.5); Red Cell Distribution Width 12.9 % (9.3-17.3); White Blood Count 24.4 T/CUMM (4-12)
[2020-12-11 06:54] LABS: Osmolality,Calculated 287.7 MOS/KG (273-304); Potassium 4.3 MMOL/L (3.5-5.1)
[2020-12-11 07:07] LABS: Band Neutrophils 1 % (0-10); Lymphocytes 6 % (20-55); Platelet Estimate Normal; Segmented Neutrophils 85 % (50-85); Total Cells Counted 100
[2020-12-11] MEDS: PANTOPRAZOLE 40 MG TABLET PO SCH (09:41)
[2020-12-11] MEDS: NICOTINE 21 MG/24 HR PATCH TRANSDERM SCH (09:41)
[2020-12-11] MEDS: AZITHROMYCIN 250 MG TABLET PO SCH (09:41)
[2020-12-11] MEDS: MONTELUKAST 10 MG TABLET PO SCH (09:41)
[2020-12-11] MEDS: INSULIN LISPRO 100 UNIT/ML SUBCUT SCH ×4 (09:45→21:02)
[2020-12-11] MEDS: BUDESONIDE/FORMOTEROL 160-4.5 INHALER 6 GM INH SCH ×2 (09:49→21:03)
[2020-12-11] MEDS: LEVOFLOXACIN 250 MG TABLET PO SCH (11:14)
[2020-12-11 11:42] LABS: Bilirubin,Urine Negative (Negative); Blood, Urine Negative (Negative); Glucose,Urine (UA) >=500 mg/dL (Negative); Ketones,Urine Negative (Negative); Mucus,Urine Occasional /LPF (Occasional); Nitrite,Urine Negative (Negative); Protein,Urine Negative; Squamous Epithelial Cell,Urine Occasional /HPF (0-10); Urine Appearance CLEAR (Clear); Urine Color Yellow (Yellow); Urine Specific Gravity 1.026 (1.001-1.035); Urine Urobilinogen < 2.0 EU/DL (0.2-1.0)
[2020-12-11] MEDS: cefTRIAXone 1,000 MG in SODIUM CHLORIDE 0.9% 100 ML IV SCH (16:51)
[2020-12-11] MEDS: ENOXAPARIN 40 MG/0.4 ML SYRINGE SUBCUT SCH (16:54)
[2020-12-11] MEDS: FLUCONAZOLE INJ 200 MG/100 ML PREMIX IV SCH (16:54)
[2020-12-11] MEDS ORDERED: INSULIN GLARGINE 100 UNIT/ML SUBCUT SCH (21:00)
[2020-12-11] MEDS: ATORVASTATIN 40 MG TABLET PO SCH (21:01)
[2020-12-12] MEDS: ALBUTEROL/IPRATROPIUM 3 ML NEB RESP TX SCH ×2 (01:15→07:47)
[2020-12-12 06:32] LABS: Basophils # 0.1 10*3/uL (0.0-0.2); Basophils % 0.2 % (0.0-0.8); Hemoglobin 11.4 GM/DL (12.0-16.0); Immature Granulocytes % 4.7 %; Immature Granulocytes Absolute 1.02 #; Lymphocytes # 0.9 10*3/uL (1.4-4.0); Lymphocytes % 4.2 % (21.3-54.2); Mean Corpuscular HGB Conc 32.6 GM/DL (32-36); Mean Corpuscular Volume 101.4 FL (87-102); Mean Platelet Volume 10.7 FL (9.6-12.0); Monocytes % 3.3 % (1.7-12.7); Neutrophils % 87.6 % (38.7-73.9); Platelet Count 229 T/CUMM (130-400); Red Blood Count 3.45 MC/CUMM (3.8-5.5); Red Cell Distribution Width 13.1 % (9.3-17.3); White Blood Count 21.9 T/CUMM (4-12)
[2020-12-12 06:55] LABS: Calcium 8.8 MG/DL (8.5-10.1); Osmolality,Calculated 283.7 MOS/KG (273-304); Potassium 4.7 MMOL/L (3.5-5.1)
[2020-12-12 06:59] LABS: Band Neutrophils 2 % (0-10); Hypochromasia 1+; Lymphocytes 7 % (20-55); Segmented Neutrophils 87 % (50-85); Total Cells Counted 100
[2020-12-12 07:00] LABS: Macrocytosis Slight; Platelet Estimate Normal
[2020-12-12] MEDS: MONTELUKAST 10 MG TABLET PO SCH (09:19)
[2020-12-12] MEDS: PANTOPRAZOLE 40 MG TABLET PO SCH (09:19)
[2020-12-12] MEDS: AZITHROMYCIN 250 MG TABLET PO SCH (09:19)
[2020-12-12] MEDS: NICOTINE 21 MG/24 HR PATCH TRANSDERM SCH (09:21)
[2020-12-12] MEDS: methylPREDNISolone SOD SUC 40 MG/1 ML VIAL IV SCH (09:24)
[2020-12-12] MEDS: INSULIN LISPRO 100 UNIT/ML SUBCUT SCH ×2 (09:25→12:49)
[2020-12-12] MEDS: BUDESONIDE/FORMOTEROL 160-4.5 INHALER 6 GM INH SCH (09:25)
[2020-12-12 12:47] VITALS: BP 116/66
[2020-12-12] MEDS: LEVOFLOXACIN 250 MG TABLET PO SCH (12:49)
[2020-12-12 13:23] LABS: M. Tuberculosis PCR Result Negative (Negative)
== END 2020-12-12 15:17 | disposition home health service (06) | DRG 191 ==
LOC: N.ED 14:06 → N.EDINP 14:06 → SUATTDRO 17:03 → N.TELEN 20:16
PROVIDERS: ADMIT Internal Medicine; ATTEND Internal Medicine